=== PATIENT | female | born 1950 | race Caucasian/White ===

== ENCOUNTER 2018-11-18 18:13 | Inpatient (IN) | payer MEDICARE, SELFPAY ==
[2018-11-18 18:17] VITALS: BP 120/72; PULSE 66; RESP 10; TEMP 36.6; O2SAT 95; BMI 27.4
--- NOTE | 2018-11-18 18:41 | ED_ITS ---
HPI - Abdominal Pain General Chief Complaint: Abdominal Pain Stated Complaint: Abd Pain Time Seen by Provider: 11/18/18 18:41 Source: patient Mode of arrival: EMS Limitations: no limitations History of Present Illness HPI narrative: Patient is a 68-year-old female. [place] by [place]. She states the abdominal pain started earlier today. Has had some nausea and vomiting which she states did not change any of her pain. No change in stool habits. No urinary symptoms. She did receive some pain medication prior to arrival which did improve her symptoms somewhat. No fevers. Related Data Home Medications Medication Instructions Recorded Confirmed omeprazole 20 mg PO DAILY 11/18/18 11/18/18 Allergies Allergy/AdvReac Type Severity Reaction Status Date / Time Penicillins Allergy Severe Anaphylaxis Verified 11/18/18 19:53 Review of Systems Constitutional Denies fever(s) Cardiovascular Denies chest pain and Denies dyspnea Respiratory Denies dyspnea Gastrointestinal Gastrointestinal: Reports abdominal pain, Denies change in stool character, Reports nausea and Reports vomiting Genitourinary Denies dysuria and Denies vaginal discharge Musculoskeletal Denies myalgias and Denies arthralgias Integumentary/Breasts Denies rash Neurologic Denies behavioral changes Psychiatric Denies behavioral changes Hematologic/Lymphatic Denies easy bleeding and Denies easy bruising [facility] Medical History Broken ankle (Acute) GERD (gastroesophageal reflux disease) (Acute) History of hysterectomy (Acute) Skin cancer (Acute) Surgical History Hx of cholecystectomy (Acute) Social History household members: spouse Smoking Status: Never smoker alcohol intake: never Social History household members: spouse Smoking Status: Never smoker alcohol intake: never Exam Initial Vital Signs Initial Vital Signs: Vital Signs Temperature 97.8 F 11/18/18 18:17 Pulse Rate 66 11/18/18 18:17 Respiratory Rate 10 L 11/18/18 18:17 Blood Pressure 120/72 11/18/18 18:17 Pulse Oximetry 95 11/18/18 18:17 Const General: cooperative, well developed, well groomed and No acute distress Orientation: alert, awake and oriented x3 HENMT Head: normal to inspection and normocephalic Resp Effort & Inspection: normal respiratory effort Auscultation: clear to auscultation bilaterally Cardio Rate: regular rate Rhythm: regular rhythm Pulses: radial pulses present GI Inspection: non-distended Palpation: soft, No firm and tender (Epigastrium right left upper quadrant) Back/Spine/Pelvis Back: No CVA tenderness Skin Lesions: no lesions Rashes: no rashes Neuro General: alert and awake Cognition: normal cognition Speech: speech normal Extrem General: normal to inspection and capillary refill normal Psych Appearance: grossly normal and well kempt Scores GCS Jaden coma scale eye opening: Spontaneous [place] coma scale verbal response: Orientated [place] coma scale motor response: Obey commands Jaden coma scale total score: 15 Course Orders Ordered: ED Orders 11/18/18 18:26 EKG-12 Lead Stat 11/18/18 18:45 Complete Blood Count AUTO DIFF Stat Comprehensive Metabolic Panel Stat Lipase Stat Partial Thromboplastin Time Stat Prothrombin Time INR Stat 11/18/18 18:50 CT abdomen pelvis w con Stat 11/18/18 20:34 Urine Culture Stat Urine Microscopic Stat 11/18/18 23:09 Consult to Discharge Planning Routine 11/19/18 Basic Metabolic Panel Routine Complete Blood Count AUTO DIFF Routine Lipase Routine Lipid Panel Routine Enoxaparin Sodium (Lovenox) 40 mg SUBCUT DAILY [facility] Hydromorphone HCl (Dilaudid) 0.5 mg IV Q6H PRN PRN Reason: Pain, Moderate (4-6) Hydromorphone HCl (Dilaudid) 1 mg IV Q6HR PRN PRN Reason: Pain, Severe (7-10) Sodium Chloride (Normal Saline 0.9%) 1,000 mls @ 150 mls/hr IV CONT [facility] Naloxone HCl (Narcan) 0.2 mg IV Q2MIN PRN PRN Reason: Opiate Reversal Ondansetron HCl (Zofran) 4 mg IV Q8HR PRN PRN Reason: Nausea And Vomiting Discontinued Medications Sodium Chloride (Normal Saline 0.9%) 1,000 mls @ 125 mls/hr IV CONT [facility] Last Infusion: 11/18/18 22:10 Dose: 125 mls/hr Admin: 11/18/18 20:48 Dose: 125 mls/hr Morphine Sulfate (Morphine) 4 mg IV NOW ONE Stop: 11/18/18 22:00 Last Admin: 11/18/18 22:03 Dose: 4 mg Vital Signs - 8 hr 11/18/18 18:17 11/18/18 19:00 11/18/18 20:54 Temperature 97.8 F Pulse Rate 66 71 Respiratory Rate 10 L 13 Blood Pressure 120/72 Blood Pressure [Left Arm] 123/56 L 128/76 Pulse Oximetry 95 95 97 11/18/18 22:18 11/18/18 22:42 Temperature 97.8 F Pulse Rate 71 67 Respiratory Rate 16 20 Blood Pressure 131/68 128/68 Blood Pressure [Left Arm] Pulse Oximetry 96 97 MDM - Abdominal Pain Lab Data Attestation: I reviewed the patient's lab results. Result diagrams: 11/18/18 18:45 11/18/18 18:45 Lab Results 11/18/18 11/18/18 11/18/18 Range/Units 18:45 18:45 18:45 WBC 8.3 (4.5-11.0) X10^3/uL RBC 4.54 (4.0-5.2) X10^6/uL Hgb 14.1 (12.0-16.0) g/dL Hct 40.5 (36-46) % MCV 89.2 (80-100) fL MCH 31.1 (26-34) PG MCHC 34.9 (30-36) % RDW 13.3 (11.6-14.8) % Plt Count 178 (150-400) X10^3/uL Neut % (Auto) 87.8 H (50-75) % Lymph % (Auto) 6.9 L (25-40) % [place] % (Auto) 4.6 (3-14) % Eos % (Auto) 0.4 L (2-4) % Baso % (Auto) 0.3 (0-2) % Neut # (Auto) 7300 H (1084-0135) /uL Lymph # (Auto) 600 L (2954-4278) /uL [place] # (Auto) 400 (0-900) /uL Eos # (Auto) 0 (0-450) /uL Baso # (Auto) 0 (0-100) /uL PT 11.8 (10.1-12.7) SECONDS INR 1.0 (0.9-1.3) APTT 25 L (26.4-36.2) SECONDS Sodium 142 (137-145) mmol/L Potassium 4.0 (3.4-5.1) mmol/L Chloride 108 H (98-107) mmol/L Carbon Dioxide 28 (22-32) mmol/L BUN 14 (7-17) mg/dL Creatinine 0.60 (0.52-1.04) mg/dL Estimated GFR > 60.0 (>60) mL/min BUN/Creatinine Ratio 23.3 H (6-22) Glucose 139 H (80-110) mg/dL Calcium 8.5 (8.4-10.2) mg/dL Total Bilirubin 1.2 (0.2-1.3) mg/dL AST 137 H (14-36) IU/L ALT 93 H (9-52) IU/L Alkaline Phosphatase 85 (38-126) U/L Total Protein 6.0 L (6.3-8.2) g/dL Albumin 3.6 (3.5-5.0) g/dL Globulin 2.4 (1.7-4.1) g/dL Albumin/Globulin Ratio 1.5 (1.0-2.8) Lipase 66572 H (23-300) U/L Urine RBC (0-5/HPF) Urine WBC (0-5/HPF) Ur Squamous Epith Cells (0-5/HPF) Urine Bacteria (None) Ur Culture Indicated? 11/18/18 Range/Units 20:34 WBC (4.5-11.0) X10^3/uL RBC (4.0-5.2) X10^6/uL Hgb (12.0-16.0) g/dL Hct (36-46) % MCV (80-100) fL MCH (26-34) PG MCHC (30-36) % RDW (11.6-14.8) % Plt Count (150-400) X10^3/uL Neut % (Auto) (50-75) % Lymph % (Auto) (25-40) % [place] % (Auto) (3-14) % Eos % (Auto) (2-4) % Baso % (Auto) (0-2) % Neut # (Auto) (5730-9483) /uL Lymph # (Auto) (0833-7397) /uL [place] # (Auto) (0-900) /uL Eos # (Auto) (0-450) /uL Baso # (Auto) (0-100) /uL PT (10.1-12.7) SECONDS INR (0.9-1.3) APTT (26.4-36.2) SECONDS Sodium (137-145) mmol/L Potassium (3.4-5.1) mmol/L Chloride (98-107) mmol/L Carbon Dioxide (22-32) mmol/L BUN (7-17) mg/dL Creatinine (0.52-1.04) mg/dL Estimated GFR (>60) mL/min BUN/Creatinine Ratio (6-22) Glucose (80-110) mg/dL Calcium (8.4-10.2) mg/dL Total Bilirubin (0.2-1.3) mg/dL AST (14-36) IU/L ALT (9-52) IU/L Alkaline Phosphatase (38-126) U/L Total Protein (6.3-8.2) g/dL Albumin (3.5-5.0) g/dL Globulin (1.7-4.1) g/dL Albumin/Globulin Ratio (1.0-2.8) Lipase (23-300) U/L Urine RBC 1-5/hpf (0-5/HPF) Urine WBC 5-10/hpf H (0-5/HPF) Ur Squamous Epith Cells 0-1 /hpf (0-5/HPF) Urine Bacteria None seen (None) Ur Culture Indicated? Specimen cultured Point of care testing: Urine Dip Bedside Urine Glucose Negative Bedside Urine Bilirubin - Negative Bedside Urine Ketone - Negative Urine Specific [place] 1.015 Bedside Urine Occult Blood - Negative Bedside Urine pH 7.0 Bedside Urine Protein - Negative Bedside Urine Urobilinogen 2+ 4mg Bedside Urine Nitrite - Negative Bedside Urine Leukocytes ++ [address] scan - abdomen: Radiologist's impression: [address] [address] [address] Scan Report Signed Patient: Apryl Sierra#: [id number] : 1950Acct:[id number] Age/Sex: 68 / FDate of Service: 11/18/18 Loc: ED Accession Number: [id number] Procedure: CT abdomen pelvis w con Ordering Provider: Lanker,Ck D.O. PROCEDURE: CT ABDOMEN PELVIS W CON INDICATIONS: Generalized abdominal pain TECHNIQUE: After the administration of intravenous contrast, 5 mm thick sections acquired from the diaphragm to the symphysis. 5 mm coronal and sagittal reformats were acquired. For radiation dose reduction, the following was used: automated exposure control, adjustment of mA and/or kV according to patient size. COMPARISON: None. FINDINGS: Image quality: Excellent. ABDOMEN: Lung bases: Mild atelectatic changes at both lung bases.. Heart size is normal. Mild thickening and wall edema of the distal esophagus. No hiatal hernia. Solid organs: Liver is normal in size and enhancement. Moderate diffuse hypodensity of hepatic parenchyma. Gallbladder is surgically absent. The extrahepatic common duct is moderately dilated. No significant intrahepatic bladder dilatation. The pancreas is mildly enlarged and there is a small moderate amount of peripancreatic fluid and fat stranding. No focal fluid collections. The splenic vein remains widely patent. No pancreatic ductal dilatation. The entire gland enhances. The spleen is at the upper limits of normal in size measuring 12.6 cm. No adrenal nodules. Kidneys demonstrate normal size and enhancement, without hydronephrosis. Peritoneum and bowel: Bowel loops demonstrate normal wall thickness and caliber. No free fluid or air. Normal appendix. Nodes and vessels: No retroperitoneal or mesenteric adenopathy by size criteria. Aorta and inferior vena cava are normal in size. Miscellaneous: No ventral hernias. PELVIS: Genitourinary: Bladder wall thickness is normal. The uterus is surgically absent. Ovarian tissue is not identified. Miscellaneous: Very small fat containing right inguinal hernia.. Bones: No suspicious bony lesions. Degenerative disc height loss L5-S1. No vertebral body compression fractures. IMPRESSION: 1. Findings of mild to moderate acute pancreatitis without complication. Extra hepatic biliary dilatation is likely secondary to pancreatic head edema. 2. Post cholecystectomy and hysterectomy. 3. Mild splenomegaly. Splenic vein are patent. 4. Moderate hepatic steatosis. 5. Distal esophageal edema and thickening, potentially secondary to esophagitis or vomiting. Dictated by: Mary Sanderson M.D. on 11/18/2018 at 20:51 Approved by: Mary Sanderson M.D. on 11/18/2018 at 20:58 ECG Data Attestation: I personally reviewed and interpreted this ECG as follows: Prior ECG tracings: not available for review Interpretation: Sinus rhythm Normal axis Ventricular rate is 68 Normal QRS Normal QTC Nonspecific ST T wave changes MDM Narrative Medical decision making narrative: Patient with an elevated lipase and elevated LFTs. She has had her gallbladder out in the past. She is tender to palpation over left upper quadrant. CT scan concerning for pancreatitis. Labs support this. Physical exam also supports this. No other intra-abdominal pathology noted on the CT scan. Discussed the case with SUNSHINE Saldana the night hospitalist will admit for further evaluation treatment. Discussed the admission with the patient and her was at bedside. They both expressed understanding and agreement with plan. Discharge Plan Departure Patient Disposition: Admitted As Inpatient Clinical Impression: Pancreatitis Qualifiers: Chronicity: acute Pancreatitis type: unspecified pancreatitis type Acute pancreatitis complication: unspecified Qualified Code(s): K85.90 - Acute pancreatitis without necrosis or infection, unspecified Discharge Date/Time: 11/18/18 22:20 Interventions: ED Discharge Assessment Last Done: 11/18/18 22:18 Admit Date/Time: 11/18/18 22:14 Admit Provider: Roberto Saldana
[2018-11-18 18:50] LABS: Add Manual Diff / Slide Review NO; Basophils Absolute Auto 0 /uL (0-100); Basophils Percent Auto 0.3 % (0-2); Eosinophils Absolute Auto 0 /uL (0-450); Eosinophils Percent Auto 0.4 % (2-4); Hematocrit 40.5 % (36-46); Hemoglobin 14.1 g/dL (12.0-16.0); Lymphocytes Absolute Auto 600 /uL (1100-4500); Lymphocytes Percent Auto 6.9 % (25-40); Mean Corpuscular HGB Conc 34.9 % (30-36); Mean Corpuscular Hemoglobin 31.1 PG (26-34); Mean Corpuscular Volume 89.2 fL (80-100); Monocytes Absolute Auto 400 /uL (0-900); Monocytes Percent Auto 4.6 % (3-14); Neutrophils Absolute Auto 7300 /uL (1500-7000); Neutrophils Percent Auto 87.8 % (50-75); Platelet Count 178 X10^3/uL (150-400); Red Blood Cell Count 4.54 X10^6/uL (4.0-5.2); Red Cell Distribution Width 13.3 % (11.6-14.8); White Blood Cell Count 8.3 X10^3/uL (4.5-11.0)
--- NOTE | 2018-11-18 18:50 | DI.CT.S_ITS ---
PROCEDURE: CT ABDOMEN PELVIS W CON INDICATIONS: Generalized abdominal pain TECHNIQUE: After the administration of intravenous contrast, 5 mm thick sections acquired from the diaphragm to the symphysis. 5 mm coronal and sagittal reformats were acquired. For radiation dose reduction, the following was used: automated exposure control, adjustment of mA and/or kV according to patient size. COMPARISON: None. FINDINGS: Image quality: Excellent. ABDOMEN: Lung bases: Mild atelectatic changes at both lung bases.. Heart size is normal. Mild thickening and wall edema of the distal esophagus. No hiatal hernia. Solid organs: Liver is normal in size and enhancement. Moderate diffuse hypodensity of hepatic parenchyma. Gallbladder is surgically absent. The extrahepatic common duct is moderately dilated. No significant intrahepatic bladder dilatation. The pancreas is mildly enlarged and there is a small moderate amount of peripancreatic fluid and fat stranding. No focal fluid collections. The splenic vein remains widely patent. No pancreatic ductal dilatation. The entire gland enhances. The spleen is at the upper limits of normal in size measuring 12.6 cm. No adrenal nodules. Kidneys demonstrate normal size and enhancement, without hydronephrosis. Peritoneum and bowel: Bowel loops demonstrate normal wall thickness and caliber. No free fluid or air. Normal appendix. Nodes and vessels: No retroperitoneal or mesenteric adenopathy by size criteria. Aorta and inferior vena cava are normal in size. Miscellaneous: No ventral hernias. PELVIS: Genitourinary: Bladder wall thickness is normal. The uterus is surgically absent. Ovarian tissue is not identified. Miscellaneous: Very small fat containing right inguinal hernia.. Bones: No suspicious bony lesions. Degenerative disc height loss L5-S1. No vertebral body compression fractures. IMPRESSION: 1. Findings of mild to moderate acute pancreatitis without complication. Extra hepatic biliary dilatation is likely secondary to pancreatic head edema. 2. Post cholecystectomy and hysterectomy. 3. Mild splenomegaly. Splenic vein are patent. 4. Moderate hepatic steatosis. 5. Distal esophageal edema and thickening, potentially secondary to esophagitis or vomiting. Dictated by: Mary Sanderson M.D. on 11/18/2018 at 20:51 Approved by: Mary Sanderson M.D. on 11/18/2018 at 20:58
[2018-11-18 18:58] LABS: Prothrombin Time 11.8 SECONDS (10.1-12.7)
[2018-11-18 19:00] VITALS: BP 123/56; O2SAT 95
[2018-11-18 19:00] LABS: PTT Partial Thromboplastin Tim 25 SECONDS (26.4-36.2)
[2018-11-18 19:02] LABS: Alanine Aminotransferase 93 IU/L (9-52); Albumin 3.6 g/dL (3.5-5.0); Albumin Globulin Ratio 1.5 (1.0-2.8); Alkaline Phosphatase 85 U/L (38-126); Aspartate Aminotransferase 137 IU/L (14-36); BUN Creatinine Ratio 23.3 (6-22); Bilirubin Total 1.2 mg/dL (0.2-1.3); Blood Urea Nitrogen 14 mg/dL (7-17); Calcium 8.5 mg/dL (8.4-10.2); Carbon Dioxide 28 mmol/L (22-32); Chloride 108 mmol/L (98-107); Estimated Glomerular Filt Rate > 60.0 mL/min (>60); Globulin 2.4 g/dL (1.7-4.1); Glucose 139 mg/dL (80-110); HEMOLYSIS < 15 (0-50); Sodium 142 mmol/L (137-145)
[2018-11-18 20:14] LABS: Lipase 29973 U/L (23-300)
[2018-11-18 20:44] LABS: Bacteria Urine None Seen; Culture Indicated Urine Specimen Cultured; RBC Urine 1-5/HPF (0-5/HPF); Squamous Epithelial Cell Urine 0-1 /HPF (0-5/HPF); WBC Urine 5-10/HPF (0-5/HPF)
[2018-11-18] MEDS: SODIUM CHLORIDE 0.9% 1,000 ML 125 ML IV (20:48)
[2018-11-18 20:54] VITALS: BP 128/76; PULSE 71; RESP 13; O2SAT 97
[2018-11-18] MEDS: MORPHINE 4 MG/ML INJ IV (22:03)
[2018-11-18 22:18] VITALS: BP 131/68; PULSE 71; RESP 16; O2SAT 96
[2018-11-18 22:30] VITALS: BMI 29.1
[2018-11-18 22:42] VITALS: BP 128/68; PULSE 67; RESP 20; TEMP 36.6; O2SAT 97
--- NOTE | 2018-11-18 22:59 | PC.ADMIT ---
Admission Note: Pt to acute care from ER transferred via stretcher. A/O. Reports pain in abdomen decreased to 4/10. IV to left AC infusing w/o complications. Spouse present at bedside for admission and will stay the night. Oriented to room/call light. Pt has bruising noted to left thigh, reports recent fall. Pt and spouse concerned because some of the belongings sent with pt from [place] are not present once she reached [facility]. Shirt, bra and purse missing. The patient,Apryl Sierra,68 y/o, was given written information regarding hospital policies, unit procedures and contact persons. [id number] Patient's smoking status: Never smoker. Vital Signs - 8 hr 11/18/18 18:17 11/18/18 19:00 11/18/18 20:54 Temperature 97.8 F Pulse Rate 66 71 Respiratory Rate 10 L 13 Blood Pressure 120/72 Blood Pressure [Left Arm] 123/56 L 128/76 Pulse Oximetry 95 95 97 11/18/18 22:18 11/18/18 22:42 Temperature 97.8 F Pulse Rate 71 67 Respiratory Rate 16 20 Blood Pressure 131/68 128/68 Blood Pressure [Left Arm] Pulse Oximetry 96 97
[2018-11-19] VITALS (9 sets, daily range): BP systolic 121–159; BP diastolic 65–77; PULSE 62–70; RESP 15–24; TEMP 36.3–37.3; O2SAT 94–98
[2018-11-19] MEDS: SODIUM CHLORIDE 0.9% 1,000 ML 150 ML IV ×4 (00:31→20:40)
--- NOTE | 2018-11-19 02:14 | P.HP_ITS ---
History of Present Illness Date Patient Seen: 11/18/18 Time Patient Seen: 23:15 Chief complaint: Abd Pain Narrative: Ms Apryl Sierra is a 68-year-old female patient with a history significant only for skin cancer and gastroesophageal reflux presents today for acute onset of abdominal pain. The patient and has not traveled from [place] to [place] 1 week ago during which time she was fine without complaints of pain or problems. Today she developed generalized abdominal pain with associated nausea and vomiting. The patient was seen in a clinic on [place] where she received Dilaudid for pain and was subsequently transferred to [facility] for continuing care. The patient states she has not had symptoms such as this before and had no prodromal complaints of illness. She denies fevers or chills and has no headaches or dizziness. Denies chest pain or palpitations, shortness of breath cough or wheezing. She has had nausea and vomiting that developed after the onset of abdominal pain and denies change in frequency or character of bowel movements. She denies complaints of dysuria or hematuria. She Has no complaints of muscle or joint pains and is independent in her ADLs and uses no assistive devices. Upon arrival in the ER the patient is afebrile with a temperature of 98.7? has a blood pressure of 120/72, heart rate of 66 respirations of 12 and saturation on room air of 95%. The patient underwent CT exam of the abdomen which found thickening of the distal esophagus and moderate extrahepatic ductal dilation without evidence of obstruction and is thought to be related to inflammation at the head of the pancreas. The pancreas is mildly enlarged and peripancreatic fluid is noted without focal fluid collections. Hepatic steatosis is also noted. Lab work finds a white count of 9.3 with a hemoglobin of 14.1 and hematocrit of 40.5 and platelets 178. Chemistries are within normal limits with a nonfasting glucose of 139. Lipase is found to be markedly elevated at 29 1973, AST mildly elevated at 137 and ALT at 93 with a normal alkaline phosphatase at 85. Coags are within normal limits. WBCs are identified in the urine which is sent for culture. The patient is admitted to the hospital for acute pancreatitis. Patient History Medical History (Updated 11/19/18 @ 02:23 by JAVY Roper) GERD (gastroesophageal reflux disease) (Acute) Skin cancer (Acute) Surgical History (Updated 11/19/18 @ 02:37 by JAVY Roper) Broken ankle (Acute) History of breast lump/mass excision (Acute) History of hysterectomy (Acute) Hx of cholecystectomy (Acute) Status post trigger finger release (Acute) Social History household members: spouse Smoking Status: Never smoker alcohol intake: never Family & Social History Social History: household members spouse Prior Living Arrangements House Safety & Behavioral: Feels Safe in Current Yes Environment Been Physically Hurt or No Threatened By a Person Suicidal Ideation Description None Tobacco & Substance use: Smoking Status Never smoker alcohol intake never alcohol intake frequency holiday/special occasion Substance Use Type does not use Comment: The patient is in [facility] visiting from [place] where she lives with her in a single family home. They have been for 49 years. Smoking: Patient denies ever smoking. Alcohol: Patient states she does not consume alcohol. Substance use: Patient denies recreation pharmaceuticals use of herbal or cannabis products. Advanced directives: In direct discussion with the patient she states her wish to be FULL CODE. She designates her Jax to be her surrogate decision maker. Meds Home Medications Medication Instructions Recorded Confirmed Type omeprazole 20 mg PO DAILY 11/18/18 11/18/18 History Allergies Allergy/AdvReac Type Severity Reaction Status Date / Time Penicillins Allergy Severe Anaphylaxis Verified 11/18/18 19:53 Review of Systems Review of Systems All systems reviewed & are unremarkable except as noted in HPI and below Exam Vital Signs (past 8 hours): - 11/18/18 18:17 11/18/18 19:00 11/18/18 20:54 Temperature 97.8 F Pulse Rate 66 71 Respiratory Rate 10 L 13 Blood Pressure 120/72 Blood Pressure [Left Arm] 123/56 L 128/76 Pulse Oximetry 95 95 97 11/18/18 22:18 11/18/18 22:42 11/19/18 00:30 Temperature 97.8 F 98.3 F Pulse Rate 71 67 70 Respiratory Rate 16 20 16 Blood Pressure 131/68 128/68 130/74 Blood Pressure [Left Arm] Pulse Oximetry 96 97 98 Oxygen Delivery Method Room Air Oxygen Flow Rate 0 Narrative Exam Narrative: GENERAL APPEARANCE: well developed, well nourished, uncomfortable appearing HEAD: Normocephalic, atraumatic, no scalp lesions. EYES: pupils equal, round, reactive to light and accommodation, sclera non- icteric, extraocular movement intact without nystagmus. EARS: normal external structures, no ear pain NOSE: sinuses non tender to percussion, no rhinorrhea ORAL CAVITY: mucosa moist without lesions or exudate, palate normal, tongue in midline. THROAT: normal, no erythema, no exudate, pharynx normal, uvula midline. NECK/THYROID: neck supple, no jugular venous distention, no carotid bruit, no thyromegaly, trachea midline. LYMPH NODES: no cervical or supraclavicular lymphadenopathy. SKIN: warm and dry, no suspicious lesions, no rashes, good turgor. HEART: regular rate and rhythm, S1-S2 without murmur appreciated, no rubs or gallops, brisk capillary refill, 2+ dorsalis pedis pulses, no edema LUNGS: clear to auscultation bilaterally, no coarseness crackles or wheezing, no cough present CHEST: Symmetrical movement, no accessory muscle use, no pain to AP and lateral compression. ABDOMEN: Pain on palpation in all quadrants, soft, no fluid wave, no distention, no guarding or peritoneal signs, no organomegaly, no flank or suprapubic tenderness, active bowel tones. BACK: Normal curvature, nontender to palpation, no CVA tenderness on percussion EXTREMITIES: moves all extremities, strength is 5/5 and symmetrical, no deformities or joint effusions, no abdominal pain on straight leg raise. NEUROLOGIC: AAO x4, no focal neurologic deficits, cranial nerves II-XII grossly intact , motor strength normal upper and lower extremities, sensory exam intact to light touch, hearing grossly normal to speech. PSYCH: alert, cognitive function intact, good eye contact, quiet and soft spoken with stable behavior Objective Labs Result Diagrams: 11/18/18 18:45 11/18/18 18:45 Labs: Laboratory Results - last 24 hr 11/18/18 11/18/18 11/18/18 18:45 18:45 18:45 WBC 8.3 RBC 4.54 Hgb 14.1 Hct 40.5 MCV 89.2 MCH 31.1 MCHC 34.9 RDW 13.3 Plt Count 178 Neut % (Auto) 87.8 H Lymph % (Auto) 6.9 L Ritchie % (Auto) 4.6 Eos % (Auto) 0.4 L Baso % (Auto) 0.3 Neut # (Auto) 7300 H Lymph # (Auto) 600 L Ritchie # (Auto) 400 Eos # (Auto) 0 Baso # (Auto) 0 PT 11.8 INR 1.0 APTT 25 L Sodium 142 Potassium 4.0 Chloride 108 H Carbon Dioxide 28 BUN 14 Creatinine 0.60 Estimated GFR > 60.0 BUN/Creatinine Ratio 23.3 H Glucose 139 H Calcium 8.5 Total Bilirubin 1.2 AST 137 H ALT 93 H Alkaline Phosphatase 85 Total Protein 6.0 L Albumin 3.6 Globulin 2.4 Albumin/Globulin Ratio 1.5 Lipase 46197 H Urine RBC Urine WBC Ur Squamous Epith Cells Urine Bacteria Ur Culture Indicated? 11/18/18 20:34 WBC RBC Hgb Hct MCV MCH MCHC RDW Plt Count Neut % (Auto) Lymph % (Auto) Ritchie % (Auto) Eos % (Auto) Baso % (Auto) Neut # (Auto) Lymph # (Auto) Ritchie # (Auto) Eos # (Auto) Baso # (Auto) PT INR APTT Sodium Potassium Chloride Carbon Dioxide BUN Creatinine Estimated GFR BUN/Creatinine Ratio Glucose Calcium Total Bilirubin AST ALT Alkaline Phosphatase Total Protein Albumin Globulin Albumin/Globulin Ratio Lipase Urine RBC 1-5/hpf Urine WBC 5-10/hpf H Ur Squamous Epith Cells 0-1 /hpf Urine Bacteria None seen Ur Culture Indicated? Specimen cultured Assessment & Plan Assessment & Plan narrative: This is a 68-year-old female patient presents to the hospital with acute onset of abdominal pain today with associated nausea vomiting. The patient is admitted for acute pancreatitis. 1. Acute pancreatitis, present on admission. -patient with onset of symptoms today with associated nausea vomiting, no history of alcohol consumption. -CT scan with findings consistent with mildly enlarged pancreas with valery pancreatic fluid without focal collections. Radiology interpretation finds moderate ductal dilatation without obstruction believed to be due to inflammation of the head of the pancreas. -patient has lipase of 29,[address] of 137 and ALT of 93 and normal alkaline phosphatase at 85. She has a normal white cell count at 9.3. -the patient has diffuse abdominal pain, patient be given Dilaudid 0.5 mg to 1 mg every 6 hours as needed for pain. -nauseous treated with Zofran 4 mg every 8 hours as needed. -patient is NPO -normal saline at 150 cc/hour. -will obtain a lipid panel. 2. Chronic Gastroesophageal reflux disorder, active. -patient complaints of nausea vomiting and epigastric discomfort on palpation. -CT scan notes thickening of the distal esophagus. -patient has been taking omeprazole 20 mg daily at home. -patient is NPO. -pantoprazole 20 mg twice daily. The patient is admitted to the hospital due to the severity of her symptoms, risk for complications and adverse events. The patient is admitted as an inpatient with expected length of stay to be greater than 2 midnights. Time Spent With Patient Time with patient: 15-24 minutes Scores GCS Jaden coma scale eye opening: Spontaneous [place] coma scale verbal response: Orientated [place] coma scale motor response: Obey commands Jaden coma scale total score: 15
[2018-11-19 05:43] LABS: Add Manual Diff / Slide Review NO; Basophils Absolute Auto 0 /uL (0-100); Basophils Percent Auto 0.6 % (0-2); Eosinophils Absolute Auto 0 /uL (0-450); Eosinophils Percent Auto 0.2 % (2-4); Hematocrit 38.9 % (36-46); Hemoglobin 13.6 g/dL (12.0-16.0); Lymphocytes Absolute Auto 700 /uL (1100-4500); Lymphocytes Percent Auto 9.9 % (25-40); Mean Corpuscular Hemoglobin 31.1 PG (26-34); Mean Corpuscular Volume 88.9 fL (80-100); Monocytes Absolute Auto 300 /uL (0-900); Monocytes Percent Auto 4.6 % (3-14); Neutrophils Absolute Auto 5700 /uL (1500-7000); Neutrophils Percent Auto 84.7 % (50-75); Platelet Count 178 X10^3/uL (150-400); Red Blood Cell Count 4.38 X10^6/uL (4.0-5.2); White Blood Cell Count 6.8 X10^3/uL (4.5-11.0)
[2018-11-19 05:51] LABS: Blood Urea Nitrogen 12 mg/dL (7-17); Calcium 8.1 mg/dL (8.4-10.2); Carbon Dioxide 24 mmol/L (22-32); Chloride 110 mmol/L (98-107); Estimated Glomerular Filt Rate > 60.0 mL/min (>60); Glucose 111 mg/dL (80-110); HEMOLYSIS < 15 (0-50); Potassium 3.9 mmol/L (3.4-5.1); Sodium 138 mmol/L (137-145)
[2018-11-19 05:53] LABS: Cholesterol 142 mg/dL (140-199); HDL Cholesterol 40 mg/dL (40-60); LDL Cholesterol Calculated 88 mg/dL (<100); Triglycerides 70 mg/dL (35-150)
[2018-11-19 06:23] LABS: Lipase 6734 U/L (23-300)
--- NOTE | 2018-11-19 09:00 | CM.DANOTE ---
DCP: Case received, EMR reviewed and met with patient. Introduced self and role. Baseline health information obtained from patient. DCP template assessment completed with information currently available. Patient is a 68 year old female who admitted yesterday evening to the care of the hospitalist team. PCP: Dr. Jaeger, in [place]. Payer: confirmed: Medicare. Patient came to the hospital via ambulance from the [facility], secondary to abdominal pain. Patient holds diagnosis of acute pancreatitis. Patient and her , Jax, have a summer home there, but live in [place]. She is independent. She was lying in bed when conversing complaining of a headache. P: DCP to continue to follow and be available for any resources that patient may need before discharge. Jaqueline Marley RN/[employer]
[2018-11-19] MEDS: ENOXAPARIN 40 MG/0.4 ML SYRINGE SUBCUT (09:02)
[2018-11-19] MEDS: PANTOPRAZOLE 40 MG VIAL 20 MG IV ×2 (09:02→21:37)
[2018-11-19] MEDS: HYDROMORPHONE 0.5 MG INJ IV ×3 (09:05→21:37)
--- NOTE | 2018-11-19 10:37 | PC.NURSE ---
Addendum entered by Tamia Engel R.N. 11/19/18 14:39: MR - alana completed, ivf saline locked for transport via for MRI. Addendum entered by Tamia Engel R.N. 11/19/18 13:09: MS/GI/ - resting bed, standby assist, up to dangle position, ambul to br and voided 150ml conc urine, declines chair, feels tired, ret to bed, states no change in abd discomfort or nausea and declines medication at this time. Addendum entered by Tamia Engel R.N. 11/19/18 10:46: PAIN - earlier iv dilaudid resolved bradford and abd discomfort, visiting w/spouse at bedside. Original Note: AM NOTE - easily awakens, states some abd tenderness, much improved since admission, some headache discomfort now, denies nausea, bt are hypo, no flatus, hr 78, ra 94%, given 0.5mg iv dilaudid for discomfort.
--- NOTE | 2018-11-19 13:42 | DI.MRI.S_ITS ---
PROCEDURE: MR ABDOMEN WO CON INDICATIONS: r/o stones TECHNIQUE: Coronal HASTE through the abdomen, axial 2-D FLASH in- and [id number], and breath-hold T2 FSE with fat saturation through the biliary system and pancreas. Oblique coronal and axial thin-slice HASTE, radial thick-slab HASTE centered on the extrahepatic bile ducts. Intravenous secretin: Not requested. COMPARISON: [facility], CT, CT ABDOMEN PELVIS W CON, 11/18/2018, 19:50. FINDINGS: Image quality: Diagnostic. Liver: No the liver is normal in size and demonstrates moderate signal dropout on opposed phased images, compared to the in phase images, suggesting hepatic steatosis. No focal liver lesions are identified. No significant intrahepatic biliary dilatation is identified. The common bile duct is enlarged and measures up to approximately 10 mm in diameter within the region of the anthony hepatis. No intraluminal filling defects are evident within it the common bile duct. Smooth tapering of the distal aspect of the common bile duct is present. The cystic stump is unremarkable. Patient has had a prior cholecystectomy. Expected flow-voids are identified within the portal and hepatic veins. Pancreas: There is moderate edema identified surrounding the pancreas. No loculated fluid collections or cysts are evident. There is a small amount of ascites identified within the upper abdomen. Other solid organs: Mild enlargement of the spleen is present, measuring 12.2 cm in craniocaudal dimension. No focal splenic lesions are evident. The adrenals are unremarkable. The kidneys are normal in size. No hydronephrosis is evident. Nodes and vessels: No retroperitoneal or mesenteric adenopathy by size criteria. Aorta and inferior vena cava are normal in size. Bowel and peritoneum: Prominence of the distal esophagus is present. The imaged bowel loops are nondilated. Moderate residual stool is seen within the colon. No loculated fluid collections are evident within the abdomen. No large areas of free air are identified. Scarring or Lung bases: Trace bilateral pleural effusions are evident. There may be areas of consolidation/atelectasis within the posterior right lower lobe. Heart size is normal. Bones and soft tissues: No ventral hernias. Bone marrow is of normal overall signal. IMPRESSION: 1. Dilated common bile duct may be within normal limits given the patient's prior cholecystectomy. There is no evidence of choledocholithiasis. 2. Acute pancreatitis. No loculated fluid collections or pseudocysts. 3. Mild upper abdominal ascites. 4. Trace bilateral effusions. 5. Distal esophageal wall thickening may be related to esophagitis. Please correlate clinically. Dictated by: Esteban Hodges M.D. on 11/19/2018 at 14:27 Approved by: Esteban Hodges M.D. on 11/19/2018 at 14:35
--- NOTE | 2018-11-19 13:48 | P.PN_ITS ---
Subjective Date Patient Seen: 11/19/18 Interval history: The patient is a 68-year-old female who was admitted to the hospital for acute pancreatitis. The patient is status post cholecystectomy 0000 which occurred about 15 years ago. She does not have a significant history of alcohol use. She reports still feeling poorly although no nausea per se. She complains of a headache. She denies any shortness of breath. She has no vomiting. Exam Vital Signs (past 8 hours): - 11/19/18 08:10 11/19/18 09:20 11/19/18 12:40 Temperature 97.8 F 97.9 F Pulse Rate 68 62 Respiratory Rate 16 16 Blood Pressure 123/71 133/77 Pulse Oximetry 97 94 96 Oxygen Delivery Method Room Air Oxygen Flow Rate 0 Narrative Exam Narrative: Pleasant female lying in bed who appears to be somewhat uncommon Lungs: Clear to auscultation Cardiac exam: Regular rate and rhythm normal S1-S2 with a 2/6 systolic ejection Abdomen: Soft mildly tender in the midepigastric and lower quadrant of the abdomen there is no palpable mass. No rebound tender no board-like rigidity, bowel tones are hypoactive Extremities: SCDs in no evidence of edema Skin: No lesion Psychiatric: No confusion or hallucination Objective Labs Result Diagrams: 11/19/18 05:24 11/19/18 05:24 Labs: Laboratory Results - last 24 hr 11/18/18 11/18/18 11/18/18 18:45 18:45 18:45 WBC 8.3 RBC 4.54 Hgb 14.1 Hct 40.5 MCV 89.2 MCH 31.1 MCHC 34.9 RDW 13.3 Plt Count 178 Neut % (Auto) 87.8 H Lymph % (Auto) 6.9 L [place] % (Auto) 4.6 Eos % (Auto) 0.4 L Baso % (Auto) 0.3 Neut # (Auto) 7300 H Lymph # (Auto) 600 L [place] # (Auto) 400 Eos # (Auto) 0 Baso # (Auto) 0 PT 11.8 INR 1.0 APTT 25 L Sodium 142 Potassium 4.0 Chloride 108 H Carbon Dioxide 28 BUN 14 Creatinine 0.60 Estimated GFR > 60.0 BUN/Creatinine Ratio 23.3 H Glucose 139 H Calcium 8.5 Total Bilirubin 1.2 AST 137 H ALT 93 H Alkaline Phosphatase 85 Total Protein 6.0 L Albumin 3.6 Globulin 2.4 Albumin/Globulin Ratio 1.5 Triglycerides Cholesterol LDL Cholesterol, Calc HDL Cholesterol Lipase 31283 H Urine RBC Urine WBC Ur Squamous Epith Cells Urine Bacteria Ur Culture Indicated? 11/18/18 11/19/18 11/19/18 20:34 05:24 05:24 WBC 6.8 RBC 4.38 Hgb 13.6 Hct 38.9 MCV 88.9 MCH 31.1 MCHC 35.0 RDW 13.0 Plt Count 178 Neut % (Auto) 84.7 H Lymph % (Auto) 9.9 L [place] % (Auto) 4.6 Eos % (Auto) 0.2 L Baso % (Auto) 0.6 Neut # (Auto) 5700 Lymph # (Auto) 700 L [place] # (Auto) 300 Eos # (Auto) 0 Baso # (Auto) 0 PT INR APTT Sodium Potassium Chloride Carbon Dioxide BUN Creatinine Estimated GFR BUN/Creatinine Ratio Glucose Calcium Total Bilirubin AST ALT Alkaline Phosphatase Total Protein Albumin Globulin Albumin/Globulin Ratio Triglycerides 70 Cholesterol 142 LDL Cholesterol, Calc 88 HDL Cholesterol 40 Lipase 6734 H D Urine RBC 1-5/hpf Urine WBC 5-10/hpf H Ur Squamous Epith Cells 0-1 /hpf Urine Bacteria None seen Ur Culture Indicated? Specimen cultured 11/19/18 05:24 WBC RBC Hgb Hct MCV MCH MCHC RDW Plt Count Neut % (Auto) Lymph % (Auto) [place] % (Auto) Eos % (Auto) Baso % (Auto) Neut # (Auto) Lymph # (Auto) [place] # (Auto) Eos # (Auto) Baso # (Auto) PT INR APTT Sodium 138 Potassium 3.9 Chloride 110 H Carbon Dioxide 24 BUN 12 Creatinine 0.50 L Estimated GFR > 60.0 BUN/Creatinine Ratio 24.0 H Glucose 111 H Calcium 8.1 L Total Bilirubin AST ALT Alkaline Phosphatase Total Protein Albumin Globulin Albumin/Globulin Ratio Triglycerides Cholesterol LDL Cholesterol, Calc HDL Cholesterol Lipase Urine RBC Urine WBC Ur Squamous Epith Cells Urine Bacteria Ur Culture Indicated? Assessment & Plan Assessment & Plan narrative: 1. 68-year-old female admitted to the hospital with acute pancreatitis. Etiology of her pancreatitis is unclear. Will obtain an MRCP tomorrow to rule out pancreatic divisum or cystic duct stones. For now will continue IV hydration, antiemetics and pain medication. Patient will remain NPO 2. GERD will continue Protonix 3. Headache will continue pain medication as needed.
--- NOTE | 2018-11-19 17:24 | PC.NURSE ---
Addendum entered by Tyesha Okeefe R.N. 11/19/18 20:59: Pt reports headache never completely abates. Up with assistance to toilet to void dark avery urine. Reports stabbing abdominal pain upon return to bed that resolves without intervention. Blood sugar checked and pt @ 87. Discussed with JAVY Saldana to inquire if indicated to add dextrose to iv fluids. Pt medicated with iv dilaudid as per emar. Original Note: Pt c/o headache pain @ beginning of shift 4-09/22. Administered 0.5 mg dilaudid as per emar. Cool washcloth to forehead. Pt denies abdominal pain or nausea. States occasionally experiences nausea, but states this is short-lived and fleeting. Declined any intervention. Ice chips sparingly. Spouse is present @ bedside.
[2018-11-19] MEDS: DEXTROSE 5%-0.9% NS 1,000 ML 125 ML IV (21:36)
--- NOTE | 2018-11-20 00:23 | PC.NURSE ---
Addendum entered by Jessika Dickerson R.N. 11/20/18 05:56: Slept at intervals. States headache has resolved and abdominal pain is 3/10 but declines pain medication. Original Note: Patient is alert and oriented. Breath sounds with inspiratory crackles bilateral bases with RA sat of 96%. Discussed risk of pneumonia related to decreased activity and importance to CDB; incentive spirometer provided and instructed in use. Only able to get to 500 on I.S. HRR. Denies nausea. BT hypoactive; abdomen is tender throughout but most severe in epigastric area. Denies dysuria, frequency or urgency. Is able to turn self in bed and up with walker and 1 assist. Bruise noted on left lateral/anterior thigh from recent fall. Wearing bilateral SCD's. Spouse rooming in. States she has an advanced directive but they do not have copy with them and they are visiting from [place] so unable to provide copy. Fall risk score is high and bed alarm is activated.
[2018-11-20 04:00] VITALS: BP 121/51; PULSE 66; RESP 18; TEMP 36.9; O2SAT 96
[2018-11-20] MEDS: DEXTROSE 5%-0.9% NS 1,000 ML 125 ML IV (05:42)
[2018-11-20 06:09] LABS: Alanine Aminotransferase 67 IU/L (9-52); Albumin 3.1 g/dL (3.5-5.0); Albumin Globulin Ratio 1.3 (1.0-2.8); Alkaline Phosphatase 65 U/L (38-126); Aspartate Aminotransferase 43 IU/L (14-36); Bilirubin Total 1.1 mg/dL (0.2-1.3); Blood Urea Nitrogen 9 mg/dL (7-17); Calcium 7.9 mg/dL (8.4-10.2); Carbon Dioxide 25 mmol/L (22-32); Chloride 108 mmol/L (98-107); Estimated Glomerular Filt Rate > 60.0 mL/min (>60); Globulin 2.4 g/dL (1.7-4.1); Glucose 110 mg/dL (80-110); HEMOLYSIS < 15 (0-50); Potassium 3.3 mmol/L (3.4-5.1); Sodium 138 mmol/L (137-145); Total Protein 5.5 g/dL (6.3-8.2)
[2018-11-20 06:14] LABS: Lipase 603 U/L (23-300)
[2018-11-20 07:30] VITALS: BP 106/66; PULSE 61; RESP 16; TEMP 36.7; O2SAT 97
[2018-11-20] MEDS: POTASSIUM CHLORIDE 40 MEQ in SODIUM CHLORIDE 0.9% 500 ML 130 ML IV (08:38)
[2018-11-20] MEDS: ENOXAPARIN 40 MG/0.4 ML SYRINGE SUBCUT (08:43)
[2018-11-20] MEDS: PANTOPRAZOLE 40 MG VIAL 20 MG IV (08:44)
--- NOTE | 2018-11-20 10:36 | P.PN_ITS ---
Subjective Date Patient Seen: 11/20/18 Interval history: The patient is a 68-year-old female who was admitted to the hospital for acute pancreatitis. She is status post cholecystectomy 15 years ago. The patient had an MRCP yesterday which was negative for choledocholithiasis or any cystic duct dilatation. She reports her pain has improved. Her pain was 10/10 upon arrival but now is about 4/10 in intensity sh e is ready to advance her diet. The patient has no nausea or vomiting. Exam Vital Signs (past 8 hours): - 11/20/18 04:00 11/20/18 07:30 Temperature 98.5 F 98.1 F Pulse Rate 66 61 Respiratory Rate 18 16 Blood Pressure 121/51 L 106/66 Pulse Oximetry 96 97 Oxygen Delivery Method Room Air Oxygen Flow Rate 0 Narrative Exam Narrative: Pleasant female in no acute distress Lungs: Clear to auscultation Cardiac exam: Regular rate and rhythm normal S1-S2 Abdomen: Soft, mildly tender, no rebound Ext: no edema Objective Labs Result Diagrams: 11/19/18 05:24 11/20/18 05:40 Labs: Laboratory Results - last 24 hr 11/20/18 11/20/18 05:40 05:40 Sodium 138 Potassium 3.3 L Chloride 108 H Carbon Dioxide 25 BUN 9 Creatinine 0.50 L Estimated GFR > 60.0 BUN/Creatinine Ratio 18.0 Glucose 110 Calcium 7.9 L Total Bilirubin 1.1 AST 43 H ALT 67 H Alkaline Phosphatase 65 Total Protein 5.5 L Albumin 3.1 L Globulin 2.4 Albumin/Globulin Ratio 1.3 Lipase 603 H D Assessment & Plan Assessment & Plan narrative: 1. Acute pancreatitis, etiology unclear, improving daily. Will discontinue IV fluids, start clear liquids and advanced diet as tolerated. MRCP negative 2. Gastroesophageal reflux disease. Will continue Protonix but switched to p.o.. Plan to discharge the patient when she can tolerate p.o. with no further nausea vomiting or abdominal pain.
[2018-11-20 12:35] VITALS: BP 135/69; PULSE 68; RESP 16; TEMP 36.4; O2SAT 100
--- NOTE | 2018-11-20 13:08 | PC.NURSE ---
Shift summary: Alert and oriented X3. Denies N/V. Rates achy epigastric abd pain 5/10 and has not wanted/required any pain meds. Abd soft, nontender. BT+, hypoactive. Flatus+. Tolerated clear liquids at lunch without issue. Advanced to low fat diet for dinner (per Dr De Leon's orders). Patient ambulated [facility] with her and is steady on her feet. K-rider infusing at 100 ml/hr (IV site was burning at ordered rate of 130 ml/hr), order to saline lock once infused. Using IS intermittently on her own, getting up between [id number]. Able to move herself in bed. Able to make needs known and calls appropriately. She's napping at this time. Light in reach, bed alarm on.
[2018-11-20 15:30] VITALS: BP 126/66; PULSE 59; RESP 16; TEMP 36.9; O2SAT 98
[2018-11-20 19:05] VITALS: BP 133/77; PULSE 61; RESP 17; TEMP 37; O2SAT 96
[2018-11-20] MEDS: SODIUM CHLORIDE 0.9% FLUSH 10 ML IV (20:50)
[2018-11-20 23:52] VITALS: O2SAT 96
[2018-11-21 00:12] VITALS: BP 130/63; PULSE 69; RESP 16; TEMP 36.6; O2SAT 96
[2018-11-21 04:24] VITALS: BP 131/78; PULSE 63; RESP 16; TEMP 36.9; O2SAT 95
[2018-11-21] MEDS: PANTOPRAZOLE 40 MG PACKET PO (06:46)
[2018-11-21 08:00] VITALS: O2SAT 95
[2018-11-21 08:10] VITALS: BP 134/79; PULSE 68; RESP 17; TEMP 36.9; O2SAT 94
--- NOTE | 2018-11-21 08:32 | PM.DS.1 ---
History of Present Illness Date Patient Seen: 11/21/18 Chief complaint: Abd Pain Narrative: Ms Apryl Sierra is a 68-year-old female patient with a history significant only for skin cancer and gastroesophageal reflux presents today for acute onset of abdominal pain. The patient and has not traveled from [place] to [place] 1 week ago during which time she was fine without complaints of pain or problems. Today she developed generalized abdominal pain with associated nausea and vomiting. The patient was seen in a clinic on [place] where she received Dilaudid for pain and was subsequently transferred to [facility] for continuing care. The patient states she has not had symptoms such as this before and had no prodromal complaints of illness. She denies fevers or chills and has no headaches or dizziness. Denies chest pain or palpitations, shortness of breath cough or wheezing. She has had nausea and vomiting that developed after the onset of abdominal pain and denies change in frequency or character of bowel movements. She denies complaints of dysuria or hematuria. She Has no complaints of muscle or joint pains and is independent in her ADLs and uses no assistive devices. Upon arrival in the ER the patient is afebrile with a temperature of 98.7? has a blood pressure of 120/72, heart rate of 66 respirations of 12 and saturation on room air of 95%. The patient underwent CT exam of the abdomen which found thickening of the distal esophagus and moderate extrahepatic ductal dilation without evidence of obstruction and is thought to be related to inflammation at the head of the pancreas. The pancreas is mildly enlarged and peripancreatic fluid is noted without focal fluid collections. Hepatic steatosis is also noted. Lab work finds a white count of 9.3 with a hemoglobin of 14.1 and hematocrit of 40.5 and platelets 178. Chemistries are within normal limits with a nonfasting glucose of 139. Lipase is found to be markedly elevated at 29 1973, AST mildly elevated at 137 and ALT at 93 with a normal alkaline phosphatase at 85. Coags are within normal limits. WBCs are identified in the urine which is sent for culture. The patient is admitted to the hospital for acute pancreatitis. Discharge Providers Date of admission: 11/18/18 22:14 Discharge Date: 11/21/18 Consults: 11/18/18 23:09 Consult to Discharge Planning Routine Comment: Discharge provider: Taty De Leon MD Summary Discharge Diagnosis: 1. Acute pancreatitis etiology unclear 2. Gastroesophageal reflux 3. Hypokalemia, resolved Hospital Course: The patient was admitted to the hospital for acute abdominal pain. Laboratory studies and CT scan confirmed acute pancreatitis. Patient had a CT scan of the abdomen this showed edema the pancreatic head but no pancreatic necrosis. The patient had minimal biliary ductal dilatation at 10 mm consistent with her cholecystectomy. The patient underwent an MRCP. This was negative for choledocholithiasis, cystic duct stone or other abnormalities. The patient was made NPO. She was given IV fluids and antiemetics. She slowly had improvement of her symptoms. She was found to be hypokalemic and this was replaced. The patient was able to advance her diet. Tolerated this without difficulty. She has no further abdominal pain or nausea. The patient is deemed appropriate for discharge a plans are being made for her to be discharged home. Status at Discharge Cognitive/behavioral status at discharge: oriented Functional status at discharge: independent ambulation Overall status at discharge: patient is back to baseline Time Spent with Patient Less than 30 minutes Exam Vital Signs (past 8 hours): - 11/21/18 04:24 11/21/18 08:00 Temperature 98.4 F Pulse Rate 63 Respiratory Rate 16 Blood Pressure 131/78 Pulse Oximetry 95 95 Oxygen Delivery Method Room Air Oxygen Flow Rate 0 Narrative Exam Narrative: Pleasant female in no acute distress Lungs: Clear to auscultation Cardiac exam: Regular rate rhythm normal S1-S2 Abdomen: Soft nontender nondistended Extremities: No edema Objective Labs Result Diagrams: 11/19/18 05:24 11/20/18 05:40 Discharge Plan Discharge Plan Discharge Problem: Pancreatitis Patient Disposition: Home Discharge comment: Patient to follow up with her PCP when she returns to [place] in 2 weeks Discharge Med Rec/Prescriptions Prescriptions: Continued omeprazole 20 mg Capsule,Delayed Release(Dr/Ec) 20 mg PO DAILY RF: 0 Provider Discharge Instructions Diet: Diet as Tolerated Activity: as tolerated Oxygen: not indicated Discharge Data Attending Provider: Roberto Saldana Admit Date/Time: 11/18/18 22:14
--- NOTE | 2018-11-21 09:24 | PC.NURSE ---
Day shift: Pt left unit in with [facility] to private car driven by Pt's spouse. They are on there way back to [place] to finish vacation. Spouse is retired RN of 42 years. Paperwork signed and all questions answered. Pt has all persoanl belongings. No new MD scrips.
== END 2018-11-21 09:26 | disposition home or self-care (01) | DRG 440 ==
LOC: ED 20:25 → AC 22:14
PROVIDERS: Internal Medicine; Admitting Provider Nurse Practitioner Adult Health; Emergency Provider Emergency Medicine; Visit Provider Nurse Practitioner Adult Health
DX: K85.90 Acute pancreatitis without necrosis or infection, unspecified (principal); K21.9 Gastro-esophageal reflux disease without esophagitis; E87.6 Hypokalemia; R51 Headache
CPT/HCPCS: 36415; 74177; 74181; 80048; 80053; 80061; 81003; 81015; 82962; 83690; 85025; 85610; 85730; 87077; 87086; 87186; 93005; 93010; 96361; 96374; 99283; 99285; C9113; J1170; J1650; J2270; J3480; Q9967

== ENCOUNTER 2021-02-08 16:16 | Inpatient (IN) | payer OTHER, SELFPAY ==
[2021-02-08] VITALS (8 sets, daily range): BP systolic 147–166; BP diastolic 70–89; PULSE 63–78; RESP 14–18; TEMP 36.3–36.7; O2SAT 96–99; BMI 29.2; BMI 29.5
[2021-02-08] MEDS: ONDANSETRON 4 MG/2 ML INJ IV (17:42)
[2021-02-08] MEDS: SODIUM CHLORIDE 0.9% 1,000 ML 1000 ML IV ×2 (17:50→20:01)
[2021-02-08] MEDS: HYDROMORPHONE 0.5 MG INJ IV (17:50)
[2021-02-08 18:14] LABS: Add Manual Diff / Slide Review NO; Basophils Absolute Auto 0 /uL (0-100); Basophils Percent Auto 0.5 % (0-2); Eosinophils Absolute Auto 100 /uL (0-450); Eosinophils Percent Auto 1.5 % (2-4); Hematocrit 39.9 % (36-46); Hemoglobin 13.8 g/dL (12.0-16.0); Lymphocytes Absolute Auto 1100 /uL (1100-4500); Lymphocytes Percent Auto 19.2 % (25-40); Mean Corpuscular HGB Conc 34.7 % (30-36); Mean Corpuscular Hemoglobin 31.1 PG (26-34); Mean Corpuscular Volume 89.7 fL (80-100); Monocytes Absolute Auto 300 /uL (0-900); Monocytes Percent Auto 5.8 % (3-14); Neutrophils Absolute Auto 4100 /uL (1500-7000); Platelet Count 170 X10^3/uL (150-400); Red Blood Cell Count 4.45 X10^6/uL (4.0-5.2); Red Cell Distribution Width 12.7 % (11.6-14.8); White Blood Cell Count 5.6 X10^3/uL (4.5-11.0)
[2021-02-08 18:25] LABS: Alanine Aminotransferase 112 IU/L (<35); Albumin 3.9 g/dL (3.5-5.0); Albumin Globulin Ratio 1.6 (1.0-2.8); Alkaline Phosphatase 79 U/L (38-126); Aspartate Aminotransferase 149 IU/L (14-36); BUN Creatinine Ratio 23.4 (6-22); Bilirubin Total 1.1 mg/dL (0.2-1.3); Blood Urea Nitrogen 15 mg/dL (7-17); Calcium 8.9 mg/dL (8.4-10.2); Carbon Dioxide 29 mmol/L (22-32); Chloride 107 mmol/L (98-107); Estimated Glomerular Filt Rate > 60.0 mL/min (>60); Globulin 2.5 g/dL (1.7-4.1); Glucose 103 mg/dL (80-110); HEMOLYSIS < 15 (0-50); Sodium 140 mmol/L (137-145); Total Protein 6.4 g/dL (6.3-8.2)
--- NOTE | 2021-02-08 18:42 | ED_ITS ---
HPI - Abdominal Pain General Chief Complaint: Abdominal Pain Stated Complaint: HURTS UNDER RIB CAGE Time Seen by Provider: 02/08/21 18:42 Source: patient Mode of arrival: Ambulatory Limitations: no limitations History of Present Illness HPI narrative: This is a 71-year-old female who comes today with complaint of li salima pancreatitis. She states she developed epigastric pain that feels similar to her prior episodes. She has had 2 prior episodes both in November of 2018 followed by November of 2019. Patient states she does not drink alcohol. She denies fevers. She denies chest pain or shortness of breath. No nausea or vomiting. No diarrhea constipation. No black or bloody stools. Patient denies any radiation of her pain to her back, abdomen or flank or chest. She does take omeprazole daily as well as meloxicam. She has had cholecystectomy, oophorectomy, hysterectomy and ORIF of a broken lower extremity. She is allergic to penicillin. She states she is allergic to some kind of pain medication but does not know what it is or what happens. She lives in [place] and travels here intermittently. She does not have a local primary care provider. Related Data Home Medications Medication Instructions Recorded Confirmed omeprazole 20 mg capsule,delayed 20 mg PO DAILY 11/18/18 02/08/21 release meloxicam 15 mg tablet 15 mg DAILY 02/08/21 02/08/21 Allergies Allergy/AdvReac Type Severity Reaction Status Date / Time Penicillins Allergy Severe Anaphylaxis Verified 02/08/21 16:54 Review of Systems Review of Systems ROS Unobtainable: All systems reviewed & are unremarkable except as noted in HPI and below Patient History Medical History GERD (gastroesophageal reflux disease) Skin cancer Surgical History Broken ankle History of breast lump/mass excision History of hysterectomy Hx of cholecystectomy Status post trigger finger release Social History household members: spouse Smoking Status: Never smoker alcohol intake: never Smoking Status: Never smoker alcohol intake frequency: holidays/special occasions only Substance Use Type: does not use Exam Narrative Exam Narrative: GENERAL: Alert and oriented x three, elderly female in mild distress. HEENT: Head normocephalic, atraumatic, EOMI, pupils reactive, face symmetric, moist mucous membranes NECK: Supple, full range of motion CARDIOVASCULAR: Regular rate and rhythm without murmurs, rubs or gallops. RESPIRATORY: Breath sounds equal bilaterally, no wheezes rales or rhonchi. ABDOMEN: Soft, positive for epigastric tenderness.. Normoactive bowel sounds all 4 quadrants. No guarding or rebound, rigidity, no mass, nondistended. : No CVA tenderness EXTREMITIES: Normal range of motion, no edema. Neurovascularly intact NEUROLOGICAL: Cranial nerves II through XII grossly intact. Moving all extremities SKIN: Warm, dry, no petechiae, no rashes or lesions. Initial Vital Signs Initial Vital Signs: Vital Signs Temperature 98.0 F 02/08/21 16:49 Pulse Rate 78 02/08/21 16:49 Respiratory Rate 14 02/08/21 16:49 Blood Pressure 166/77 H 02/08/21 16:49 Pulse Oximetry 99 02/08/21 16:49 Course Orders Ordered: ED Orders 02/08/21 16:55 EKG-12 Lead Stat 02/08/21 18:10 Complete Blood Count AUTO DIFF Stat Comprehensive Metabolic Panel Stat Lipase Stat 02/08/21 18:11 Amylase Urgent Lactate Dehydrogenase Urgent Lipid Panel Urgent Magnesium Urgent 02/08/21 18:53 CT abdomen pelvis w con Stat 02/08/21 19:08 COVID19 - ADMIT ([employer] swab/PCR) Stat 02/08/21 20:36 Education, smoking cessation ONGOING 02/09/21 05:00 Basic Metabolic Panel Routine Hemoglobin and Hematocrit Routine Hepatic (Liver) Panel DAILY Lipase Routine Prothrombin Time INR Routine 02/10/21 05:00 Hepatic (Liver) Panel DAILY 02/11/21 05:00 Hepatic (Liver) Panel DAILY Acetaminophen (Acetaminophen 325 Mg Tablet) 650 mg PO Q6HR PRN PRN Reason: Fever/Mild Pain (1-3) Enoxaparin Sodium (Enoxaparin 40 Mg/0.4 Ml Syringe) 40 mg SUBCUT DAILY HUGO Hydromorphone HCl (Hydromorphone 0.5 Mg Inj) 0.5 mg IV Q6H PRN PRN Reason: Pain, Moderate (4-6) Sodium Chloride (Normal Saline 0.9%) 1,000 mls @ 150 mls/hr IV CONT HUGO Last Admin: 02/08/21 21:41 Dose: 150 mls/hr Documented by: DOLLY Naloxone HCl (Naloxone 0.4 Mg/Ml Vial) 0.2 mg IV Q2MIN PRN PRN Reason: Opiate Reversal Ondansetron HCl (Ondansetron 4 Mg/2 Ml Inj) 4 mg IV Q8HR PRN PRN Reason: Nausea And Vomiting Discontinued Medications Hydromorphone HCl (Hydromorphone 0.5 Mg Inj) 0.5 mg IV NOW ONE Stop: 02/08/21 17:47 Last Admin: 02/08/21 17:50 Dose: 0.5 mg Documented by: MINGO Sodium Chloride (Normal Saline 0.9%) 1,000 mls @ 1,000 mls/hr IV BOLUS ONE Stop: 02/08/21 18:41 Last Infusion: 02/08/21 18:50 Dose: 0 mls/hr Documented by: Admin: 02/08/21 17:50 Dose: 1,000 mls/hr Documented by: MINGO Sodium Chloride (Normal Saline 0.9%) 1,000 mls @ 1,000 mls/hr IV BOLUS ONE Stop: 02/08/21 19:52 Last Infusion: 02/08/21 20:54 Dose: 0 mls/hr Documented by: Admin: 02/08/21 20:01 Dose: 1,000 mls/hr Documented by: RAYNE Ondansetron HCl (Ondansetron 4 Mg/2 Ml Inj) 4 mg IV NOW ONE Stop: 02/08/21 16:56 Last Admin: 02/08/21 17:42 Dose: 4 mg Documented by: MINGO Consultations Consultation #1: SUNSHINE Barnes regarding admission, accepts for admission. Review ed labs and todays findings. All questions answered. Vital Signs Vital signs: Vital Signs - 8 hr 02/08/21 16:49 02/08/21 19:05 02/08/21 19:30 Temperature 98.0 F Pulse Rate 78 63 63 Respiratory Rate 14 16 16 Blood Pressure 166/77 H 147/80 H 157/70 H Pulse Oximetry 99 99 98 02/08/21 20:00 02/08/21 20:30 Temperature Pulse Rate 68 64 Respiratory Rate 15 16 Blood Pressure 153/72 H 158/75 H Pulse Oximetry 97 96 MDM - Abdominal Pain Lab Data Result diagrams: 02/08/21 18:10 02/08/21 18:10 Labs: Lab Results 02/08/21 02/08/21 02/08/21 Range/Units 18:10 18:10 18:10 WBC 5.6 (4.5-11.0) X10^3/uL RBC 4.45 (4.0-5.2) X10^6/uL Hgb 13.8 (12.0-16.0) g/dL Hct 39.9 (36-46) % MCV 89.7 (80-100) fL MCH 31.1 (26-34) PG MCHC 34.7 (30-36) % RDW 12.7 (11.6-14.8) % Plt Count 170 (150-400) X10^3/uL Neut % (Auto) 73.0 (50-75) % Lymph % (Auto) 19.2 L (25-40) % [place] % (Auto) 5.8 (3-14) % Eos % (Auto) 1.5 L (2-4) % Baso % (Auto) 0.5 (0-2) % Neut # (Auto) 4100 (2179-3380) /uL Lymph # (Auto) 1100 (3416-7150) /uL [place] # (Auto) 300 (0-900) /uL Eos # (Auto) 100 (0-450) /uL Baso # (Auto) 0 (0-100) /uL Sodium 140 (137-145) mmol/L Potassium 4.0 (3.4-5.1) mmol/L Chloride 107 (98-107) mmol/L Carbon Dioxide 29 (22-32) mmol/L BUN 15 (7-17) mg/dL Creatinine 0.64 (0.52-1.04) mg/dL Estimated GFR > 60.0 (>60) mL/min BUN/Creatinine Ratio 23.4 H (6-22) Glucose 103 (80-110) mg/dL Hemoglobin A1c 4.7 (4.0-6.0) % Calcium 8.9 (8.4-10.2) mg/dL Magnesium (1.6-2.3) mg/dL Total Bilirubin 1.1 (0.2-1.3) mg/dL GGT (12-43) U/L AST 149 H (14-36) IU/L ALT 112 H (<35) IU/L Alkaline Phosphatase 79 (38-126) U/L Lactate Dehydrogenase (313-618) U/L Total Protein 6.4 (6.3-8.2) g/dL Albumin 3.9 (3.5-5.0) g/dL Globulin 2.5 (1.7-4.1) g/dL Albumin/Globulin Ratio 1.6 (1.0-2.8) Triglycerides (35-150) mg/dL Cholesterol (140-199) mg/dL LDL Cholesterol, Calc (<100) mg/dL HDL Cholesterol (40-60) mg/dL Amylase (30-110) U/L Lipase 18699 H (23-300) U/L SARS-CoV-2 (PCR) (Negative) 02/08/21 02/08/21 02/08/21 Range/Units 18:10 18:11 18:11 WBC (4.5-11.0) X10^3/uL RBC (4.0-5.2) X10^6/uL Hgb (12.0-16.0) g/dL Hct (36-46) % MCV (80-100) fL MCH (26-34) PG MCHC (30-36) % RDW (11.6-14.8) % Plt Count (150-400) X10^3/uL Neut % (Auto) (50-75) % Lymph % (Auto) (25-40) % [place] % (Auto) (3-14) % Eos % (Auto) (2-4) % Baso % (Auto) (0-2) % Neut # (Auto) (8331-0312) /uL Lymph # (Auto) (2610-4275) /uL [place] # (Auto) (0-900) /uL Eos # (Auto) (0-450) /uL Baso # (Auto) (0-100) /uL Sodium (137-145) mmol/L Potassium (3.4-5.1) mmol/L Chloride (98-107) mmol/L Carbon Dioxide (22-32) mmol/L BUN (7-17) mg/dL Creatinine (0.52-1.04) mg/dL Estimated GFR (>60) mL/min BUN/Creatinine Ratio (6-22) Glucose (80-110) mg/dL Hemoglobin A1c (4.0-6.0) % Calcium (8.4-10.2) mg/dL Magnesium 2.3 (1.6-2.3) mg/dL Total Bilirubin (0.2-1.3) mg/dL GGT 368 H (12-43) U/L AST (14-36) IU/L ALT (<35) IU/L Alkaline Phosphatase (38-126) U/L Lactate Dehydrogenase 959 H (313-618) U/L Total Protein (6.3-8.2) g/dL Albumin (3.5-5.0) g/dL Globulin (1.7-4.1) g/dL Albumin/Globulin Ratio (1.0-2.8) Triglycerides 117 (35-150) mg/dL Cholesterol 179 (140-199) mg/dL LDL Cholesterol, Calc 103 H (<100) mg/dL HDL Cholesterol 53 (40-60) mg/dL Amylase 882 H (30-110) U/L Lipase (23-300) U/L SARS-CoV-2 (PCR) (Negative) 02/08/21 Range/Units 19:08 WBC (4.5-11.0) X10^3/uL RBC (4.0-5.2) X10^6/uL Hgb (12.0-16.0) g/dL Hct (36-46) % MCV (80-100) fL MCH (26-34) PG MCHC (30-36) % RDW (11.6-14.8) % Plt Count (150-400) X10^3/uL Neut % (Auto) (50-75) % Lymph % (Auto) (25-40) % [place] % (Auto) (3-14) % Eos % (Auto) (2-4) % Baso % (Auto) (0-2) % Neut # (Auto) (8599-5644) /uL Lymph # (Auto) (8646-4931) /uL [place] # (Auto) (0-900) /uL Eos # (Auto) (0-450) /uL Baso # (Auto) (0-100) /uL Sodium (137-145) mmol/L Potassium (3.4-5.1) mmol/L Chloride (98-107) mmol/L Carbon Dioxide (22-32) mmol/L BUN (7-17) mg/dL Creatinine (0.52-1.04) mg/dL Estimated GFR (>60) mL/min BUN/Creatinine Ratio (6-22) Glucose (80-110) mg/dL Hemoglobin A1c (4.0-6.0) % Calcium (8.4-10.2) mg/dL Magnesium (1.6-2.3) mg/dL Total Bilirubin (0.2-1.3) mg/dL GGT (12-43) U/L AST (14-36) IU/L ALT (<35) IU/L Alkaline Phosphatase (38-126) U/L Lactate Dehydrogenase (313-618) U/L Total Protein (6.3-8.2) g/dL Albumin (3.5-5.0) g/dL Globulin (1.7-4.1) g/dL Albumin/Globulin Ratio (1.0-2.8) Triglycerides (35-150) mg/dL Cholesterol (140-199) mg/dL LDL Cholesterol, Calc (<100) mg/dL HDL Cholesterol (40-60) mg/dL Amylase (30-110) U/L Lipase (23-300) U/L SARS-CoV-2 (PCR) Negative (Negative) Imaging Data CT scan - abdomen/pelvis: Radiologist's Impression: Launch?Image [address] [address] [address] Scan Report Signed Patient: Apryl Sierra MR#: [id number] : 1950 Acct:[id number] Age/Sex: 71 / F Date of Service: 02/08/21 Loc: ED Accession Number: [id number] ?? Procedure: CT abdomen pelvis w con Ordering Provider: Radha Nolasco D.O. PROCEDURE:? CT ABDOMEN PELVIS W CON ? INDICATIONS:? pancreatitis, recurrent ? TECHNIQUE:? After the administration of IV contrast, axial sections were acquired from the lung bases to the pubic symphysis.? Coronal and sagittal reformats were performed.? For rad iation dose reduction, the following was used:? automated exposure control, adjustment of mA and/or kV according to patient size. ? COMPARISON:? [facility], CT, CT ABDOMEN PELVIS W CON, 11/18/2018, 19:50. ? FINDINGS:? Image quality:? Excellent.? ? Lung bases:? There is a partially visualized left lower lobe nodule measuring up to 0.8 cm on series 3, image 1 which appears unchanged in size compared to the prior study.? ? Heart:? Normal in size. ? ? ABDOMEN: Liver:? There is hypoattenuation of the liver consistent with fatty infiltration.? ? Gallbladder:? Surgically absent. Biliary ducts:? There is mild biliary ductal dilatation likely related to prior cholecystectomy.? No calcified common duct stones.? ? Pancreas:? There is peripancreatic fat stranding and fluid consistent with acute pancreatitis.? No areas of hypoenhancement to suggest necrosis.? No discrete loculated peripancreatic fluid collections.? No pancreatic duct dilatation.? ? Spleen:? Unremarkable.? ? Adrenal Glands:? Unremarkable.? ? Kidneys and Ureters:? Unremarkable.? ? ? Stomach and Bowel:? Stomach, small bowel loops, and colon are normal in caliber and wall thickness.? No evidence of appendicitis.? Peritoneum:? There is minimal peripancreatic free fluid.? No free air.? ? Ventral Wall: ? No hernia.? Abdominal Nodes:? No retroperitoneal or mesenteric adenopathy by size criteria.? Vessels:? Aorta and inferior vena cava are normal in size.? ? PELVIS: Pelvic Organs:? Unremarkable.? ? Bladder:? Unremarkable.? ? Pelvic Nodes: No enlarged lymph nodes.? Miscellaneous:? There is a small fat-containing right inguinal hernia. ? Bones:? Unremarkable.? IMPRESSION:? ? 1.? Acute interstitial edematous pancreatitis without evidence of an acute peripancreatic fluid collection.? ? ? Dictated by: Oscar Lopez M.D. on 02/08/2021 at 19:54 ? ? Approved by: Oscar Lopez M.D. on 02/08/2021 at 19:57?? ECG Data Attestation: I personally reviewed and interpreted this ECG as follows: Prior ECG tracings: available for review Interpretation: Sinus bradycardia left axis deviation. Rate of 50 6p are 180 QRS of 92 QTC 459. No acute ST changes. Patient has prior EKG from 11/18/2018 which appears similar. MDM Narrative Medical decision making narrative: This is a 71-year-old female comes in with complaint of epigastric pace reminiscent of her prior episodes of pancreatitis. Patient did have an MRCP and CT abdomen pelvis on her last hospitalization which of pancreatitis but no acute blockages. Her lipase is once again 24,000, she has a slight bump in her AST ALT with normal renal function, no leukocytosis for major changes her CBC. Imaging was obtained and shows pancreatitis. Slightly enlarged common bile duct but not outside limits for post cholecystectomy with no obvious blockage or stone. As well as COVID swab. Patient was given fluids, pain control and case was discussed with the hospitalist accepts for admission. Discharge Plan Departure Patient Disposition: Admitted As Inpatient Clinical Impression: Pancreatitis Admit Date/Time: 02/08/21 20:49 Admit Provider: Maris Barnes
[2021-02-08 18:51] LABS: Lipase 24637 U/L (23-300)
--- NOTE | 2021-02-08 18:53 | DI.CT.S_ITS ---
PROCEDURE: CT ABDOMEN PELVIS W CON INDICATIONS: pancreatitis, recurrent TECHNIQUE: After the administration of IV contrast, axial sections were acquired from the lung bases to the pubic symphysis. Coronal and sagittal reformats were performed. For radiation dose reduction, the following was used: automated exposure control, adjustment of mA and/or kV according to patient size. COMPARISON: [facility], CT, CT ABDOMEN PELVIS W CON, 11/18/2018, 19:50. FINDINGS: Image quality: Excellent. Lung bases: There is a partially visualized left lower lobe nodule measuring up to 0.8 cm on series 3, image 1 which appears unchanged in size compared to the prior study. Heart: Normal in size. ABDOMEN: Liver: There is hypoattenuation of the liver consistent with fatty infiltration. Gallbladder: Surgically absent. Biliary ducts: There is mild biliary ductal dilatation likely related to prior cholecystectomy. No calcified common duct stones. Pancreas: There is peripancreatic fat stranding and fluid consistent with acute pancreatitis. No areas of hypoenhancement to suggest necrosis. No discrete loculated peripancreatic fluid collections. No pancreatic duct dilatation. Spleen: Unremarkable. Adrenal Glands: Unremarkable. Kidneys and Ureters: Unremarkable. Stomach and Bowel: Stomach, small bowel loops, and colon are normal in caliber and wall thickness. No evidence of appendicitis. Peritoneum: There is minimal peripancreatic free fluid. No free air. Ventral Wall: No hernia. Abdominal Nodes: No retroperitoneal or mesenteric adenopathy by size criteria. Vessels: Aorta and inferior vena cava are normal in size. PELVIS: Pelvic Organs: Unremarkable. Bladder: Unremarkable. Pelvic Nodes: No enlarged lymph nodes. Miscellaneous: There is a small fat-containing right inguinal hernia. Bones: Unremarkable. IMPRESSION: 1. Acute interstitial edematous pancreatitis without evidence of an acute peripancreatic fluid collection. Dictated by: Oscar Lopez M.D. on 02/08/2021 at 19:54 Approved by: Oscar Lopez M.D. on 02/08/2021 at 19:57
[2021-02-08 20:00] LABS: COVID19 - ADMIT (NP swab/PCR) Negative (Negative)
--- NOTE | 2021-02-08 20:40 | P.HP_ITS ---
History of Present Illness History of Present Illness Date Patient Seen: 02/08/21 Time Patient Seen: 20:41 Chief complaint: HURTS UNDER RIB CAGE Narrative: Apryl Sierra is a 71-year-old female who presented to the ED today with complaint of mid epigastric abd pain likely pancreatitis.? She states she developed epigastric pain that feels similar to her prior episodes of pancreatitis in November of 2018 and November of 2019. ? Patient states she does not drink alcohol.? She denies fevers, chest pain, shortness of breath, chills, nausea, vomiting, diarrhea, constipation, hematemesis, or melena. Denies any radiation of her pain to her back, abdomen or flank or chest.? She does take omeprazole daily as well as meloxicam.? She has had cholecystectomy, oophorectomy, hysterectomy and ORIF of a broken lower extremity.? She is allergic to penicillin.? She states she is allergic to some kind of pain medication but does not know what it is or what happens.? She lives in [place] and travels here intermittently.? She does not have a local primary care provider. 2018 ERCP demonstrated Dilated common bile duct may be within normal limits given the patient's prior cholecystectomy, no evidence of choledocholithiasis.?Positive acute pancreatitis, with no loculated fluid collections or pseudocysts. Mild upper abdominal ascites, and trace bilateral effusions, with distal esophageal wall thickening may be related to esophagitis.? Today upon admit patient continues to complain of epigastric pain that is constant it is improved it is 3 to 4/10 at this time she denies nausea vomiting diarrhea chills fever, and patient is in no distress at this time. But does have body aches. Patient's blood pressure is mildly elevated at 160 6/77 the rest of her vital signs are stable CBC and CMP WNL, her AST 149, ALT 112, lipase 2637, GGT 368, amylase 882, lactate D 959, patient demonstrates no hyperlipidemia or diabetes LDL is 103, A1c 4.7%, patient denies alcohol use. Patient admitted for acute on chronic pancreatitis. Patient History Medical History GERD (gastroesophageal reflux disease) Skin cancer Surgical History Broken ankle History of breast lump/mass excision History of hysterectomy Hx of cholecystectomy Status post trigger finger release Family & Social History Family History Mother Dementia Father Stroke Social History: household members spouse Safety & Behavioral: Feels Safe in Current Yes Environment Been Physically Hurt or No Threatened By a Person Tobacco & Substance use: Smoking Status Never smoker alcohol intake never alcohol intake frequency holiday/special occasion Substance Use Type does not use Meds Home Medications and Allergies Home Medications Medication Instructions Recorded Confirmed Type omeprazole 20 mg capsule,delayed 20 mg PO DAILY 11/18/18 02/08/21 History release meloxicam 15 mg tablet 15 mg DAILY 02/08/21 02/08/21 History Allergies Allergy/AdvReac Type Severity Reaction Status Date / Time Penicillins Allergy Severe Anaphylaxis Verified 02/08/21 16:54 Review of Systems Review of Systems Narrative: All 12 point systems reviewed with the patient and are negative except otherwise documented. Exam Vital Signs (past 8 hours): - 02/08/21 16:49 Temperature 98.0 F Pulse Rate 78 Respiratory Rate 14 Blood Pressure 166/77 H Pulse Oximetry 99 Oxygen Delivery Method Room Air Narrative Exam Narrative: General: Patient is a well-developed, well-nourished female in no distress at this time. HEENT: Normocephalic, atraumatic, extraocular muscles intact, oral pharynx is clear and mucous membranes are moist. Neck is supple and symmetric, trachea is midline, no adenopathy, no thyroid enlargement, nontender, no masses palpated. Negative for JVD Chest: Normal AP diameter and contour without kyphoscoliosis, no nasal flaring, retractions, or tachypneic labored Lungs: Auscultation of all lung monreal are clear without adventitious sounds, wheezes, rhonchi, or rales. Cardio: S1 & S2 with regular rate and rhythm without murmur, rubs, or gallops, no carotid bruit, no cardiac pulsations present. Abdomen: Soft mid epigastric tenderness, negative for organomegaly, or masses. Bowel sounds are present in all 4 quadrants without guarding or rebound, no CVA tenderness. Musculoskeletal: Muscle strength and tone are equal within normal limits, no deformity, crepitus, effusions, cyanosis, clubbing or edema present. Full range of motion intact radial and pedal pulses are normal. Skin: Warm dry and intact without rashes, ulcerations or petechiae. Neuro: Alert and orientated x3, strength is +5/5 in all extremities, sensation to touch intact, no gross deficits noted of cranial nerves. Psych: Patient has a well-kept appearance, appropriate affect, mental status attitude thought context and judgment are appropriate for age. Objective Labs Result Diagrams: 02/08/21 18:10 02/08/21 18:10 Labs: Laboratory Results - last 24 hr 02/08/21 02/08/21 02/08/21 18:10 18:10 19:08 WBC 5.6 RBC 4.45 Hgb 13.8 Hct 39.9 MCV 89.7 MCH 31.1 MCHC 34.7 RDW 12.7 Plt Count 170 Neut % (Auto) 73.0 Lymph % (Auto) 19.2 L Wheeler % (Auto) 5.8 Eos % (Auto) 1.5 L Baso % (Auto) 0.5 Neut # (Auto) 4100 Lymph # (Auto) 1100 Wheeler # (Auto) 300 Eos # (Auto) 100 Baso # (Auto) 0 Sodium 140 Potassium 4.0 Chloride 107 Carbon Dioxide 29 BUN 15 Creatinine 0.64 Estimated GFR > 60.0 BUN/Creatinine Ratio 23.4 H Glucose 103 Calcium 8.9 Total Bilirubin 1.1 AST 149 H ALT 112 H Alkaline Phosphatase 79 Total Protein 6.4 Albumin 3.9 Globulin 2.5 Albumin/Globulin Ratio 1.6 Lipase 50989 H SARS-CoV-2 (PCR) Negative Assessment & Plan Assessment & Plan narrative: This is a 71-year-old female patient presents to the hospital with acute onset of epigastric abdominal pain today with out associated nausea vomiting.? The patient is admitted for acute on chronic pancreatitis. 1. Acute on chronic pancreatitis, present on admission.-unknown etiology -patient has had 2 prior episodes of acute pancreatitis, the episodes have prior occurred in November of 2018 & 2019. Hx of cholecystectomy. -patient with onset of symptoms midepigastric abdominal pain today with no associated nausea vomiting, no history of alcohol consumption. -Abd/Pelvis CT demonstrated Acute interstitial edematous pancreatitis without evidence of an acute peripancreatic fluid collection.? -Pain in ED 02/22, on admit 08/23. -rule out peptic ulcer disease, superimposed pancreatic carcinoma, narcotic bowel, gastroparesis, pancreatic pseudocyst, duodenal or biliary obstruction. -MRCP ordered -the patient has mid-epigastric abdominal pain, patient be given Dilaudid 0.5 mg to 1 mg every 6 hours as needed for pain. -Zofran 4 mg every 8 hours as needed for nausea -patient is NPO may advance to clear liquids with cessation of N&V, then advance as tolerated to regular diet -normal saline at 150 cc/hour. -Trend liver enzymes 2. Chronic Gastroesophageal reflux disorder, chronic, present on admission -Continue omeprazole 20 mg daily. 3. Elevated blood pressure on admission without the diagnosis of hypertension, acute, present on admission -admit BP 166/77 -monitor b/p Code status:Full Surrogate decision maker: Spouse Jax Sierra COVID PCR:Negative COVID vaccination: Unknown DVT/VTE prophylaxis: Lovenox 40 mg and SCDs Disposition: Patient admitted for observation expected length of stay less than 2 midnights I have utilized all available immediate resources to obtain, update, or review the patient's current medications. I confirmed that the patient's advanced care plan is present, Code status is documented and/or surrogate decision maker is listed in the patient's medical record. Time Spent With Patient Critical Care time: I spent a total of [] minutes of critical care time on this patient's care today; this time is exclusive of procedural time. Scores GCS Jaden coma scale eye opening: Spontaneous [place] coma scale verbal response: Orientated Jaden coma scale motor response: Obey commands Jaden coma scale total score: 15
[2021-02-08 20:54] LABS: Amylase 882 U/L (30-110)
[2021-02-08 20:55] LABS: Cholesterol 179 mg/dL (140-199); HDL Cholesterol 53 mg/dL (40-60); LDL Cholesterol Calculated 103 mg/dL (<100); Lactate Dehydrogenase 959 U/L (313-618); Magnesium 2.3 mg/dL (1.6-2.3); Triglycerides 117 mg/dL (35-150)
[2021-02-08] MEDS: SODIUM CHLORIDE 0.9% 1,000 ML 150 ML IV (21:41)
--- NOTE | 2021-02-08 22:19 | DI.MRI.S_ITS ---
PROCEDURE: MR ABDOMEN WO CON INDICATIONS: Acute on chronic pancreatitis TECHNIQUE: Coronal HASTE through the abdomen, axial 2-D FLASH in- and [id number], and breath-hold T2 FSE with fat saturation through the biliary system and pancreas. Oblique coronal and axial thin-slice HASTE, radial thick-slab HASTE centered on the extrahepatic bile ducts. Intravenous secretin: Not requested. COMPARISON: [facility], CT, CT ABDOMEN PELVIS W CON, 02/08/2021, 19:21. [facility], MR, MR ABDOMEN WO CON, 11/19/2018, 14:09. FINDINGS: Image quality: Adequate. There is respiratory motion. Pancreas and biliary system: Mild peripancreatic edema. No peripancreatic fluid collections. Normal pancreatic duct caliber and classic ductal anatomy. Moderate edema in the anthony hepatis. The common hepatic duct is dilated at 1.4 cm. The gallbladder is surgically absent. No significant intrahepatic biliary dilatation. Residual cystic duct appears normal. Common bile duct is 0.7 cm, appropriate post cholecystectomy and for the patient's age. Common duct tapers normally to the ampulla and there are no intrinsic filling defects. Other solid organs: Liver is normal in size. Moderate T1 out of phase signal drop indicating diffuse hepatic steatosis. Spleen is normal in size. No adrenal nodules. Both kidneys are normal in size, without hydronephrosis. Nodes and vessels: No retroperitoneal or mesenteric adenopathy by size criteria. Aorta and inferior vena cava are normal in size. Bowel and peritoneum: Unenhanced bowel loops are normal in caliber. No free fluid. Lung bases: No basal pleural effusions. Heart size is normal. Bones and soft tissues: No ventral hernias. Bone marrow is of normal overall signal. IMPRESSION: 1. No significant change in degree of extrahepatic biliary dilatation compared to the prior MRI. This is likely secondary to patient's post cholecystectomy state. There are no intrinsic filling defects to suggest etiology of pancreatitis. Pancreatitis has not increased the degree of biliary dilatation. 2. Findings of mild acute interstitial pancreatitis. Edema is also seen in the anthony hepatis. 3. Moderate hepatic steatosis, similar compared to prior. Dictated by: Mary Sanderson M.D. on 02/09/2021 at 11:49 Approved by: Mary Sanderson M.D. on 02/09/2021 at 12:23
[2021-02-08 22:35] LABS: Gamma Glutamyl Transpeptidase 368 U/L (12-43)
[2021-02-08 22:47] LABS: Hemoglobin A1C% w Est Avg Glu 4.7 % (4.0-6.0)
--- NOTE | 2021-02-08 22:54 | PC.NURSE ---
Pt admitted tonight with pancreatitis of unknown etiology, pt alert and oriented x 4. Denies pain at the moment. Pt still needs a UA sample. at the bedside and will be spending the night.
[2021-02-09] VITALS (11 sets, daily range): BP systolic 110–141; BP diastolic 57–72; PULSE 51–65; RESP 16–18; TEMP 35.9–36.3; O2SAT 93–98
[2021-02-09] MEDS: SODIUM CHLORIDE 0.9% 1,000 ML 150 ML IV ×2 (04:15→17:46)
[2021-02-09] MEDS: ACETAMINOPHEN 325 MG TABLET 650 MG PO ×2 (04:18→15:19)
[2021-02-09] MEDS: HYDROMORPHONE 0.5 MG INJ IV ×2 (04:18→09:52)
[2021-02-09 05:45] LABS: Hematocrit 37.8 % (36-46); INR 1.1 (0.9-1.3); Prothrombin Time 12.8 SECONDS (10.1-12.7)
[2021-02-09 05:48] LABS: Alanine Aminotransferase 88 IU/L (<35); Albumin 3.4 g/dL (3.5-5.0); Albumin Globulin Ratio 1.4 (1.0-2.8); Alkaline Phosphatase 72 U/L (38-126); Aspartate Aminotransferase 78 IU/L (14-36); BUN Creatinine Ratio 21.4 (6-22); Bilirubin Total 1.1 mg/dL (0.2-1.3); Bilirubin Unconjugated 0.9 mg/dL (0.0-1.1); Blood Urea Nitrogen 12 mg/dL (7-17); Calcium 8.2 mg/dL (8.4-10.2); Carbon Dioxide 28 mmol/L (22-32); Chloride 109 mmol/L (98-107); Estimated Glomerular Filt Rate > 60.0 mL/min (>60); Globulin 2.4 g/dL (1.7-4.1); Glucose 107 mg/dL (80-110); HEMOLYSIS < 15 (0-50); Potassium 4.1 mmol/L (3.4-5.1); Sodium 138 mmol/L (137-145); Total Protein 5.8 g/dL (6.3-8.2)
[2021-02-09 06:05] LABS: Lipase 6766 U/L (23-300)
[2021-02-09 07:50] LABS: Appearance Urine UA CLEAR; Bilirubin Urine UA NEGATIVE (NEGATIVE); Color Urine UA YELLOW; Glucose Urine UA NEGATIVE (Negative); Ketones Urine UA NEGATIVE (NEGATIVE); Leukocyte Esterase Urine UA TRACE (NEGATIVE); Nitrite Urine UA NEGATIVE (Negative); Occult Blood Urine UA NEGATIVE (Negative); Protein Urine UA NEGATIVE (Negative); Urobilinogen Urine UA 0.2 E.U./dL (0.2)
[2021-02-09 07:59] LABS: Culture Indicated Urine Specimen Cultured; RBC Urine None Seen (0-5/HPF); WBC Urine 1-5/HPF (0-5/HPF)
[2021-02-09 08:00] LABS: Bacteria Urine None Seen
[2021-02-09] MEDS: ONDANSETRON 4 MG/2 ML INJ IV (09:16)
[2021-02-09] MEDS: ENOXAPARIN 40 MG/0.4 ML SYRINGE SUBCUT (09:16)
--- NOTE | 2021-02-09 16:33 | CM.DANOTE ---
DCP/Assessment: Reviewed chart. Patient is a 71yr old female admitted to [facility] with pancreatitis. No PCP listed. Primary payor is 1) [facility]. Met with patient and spouse/Jax at bedside explained CM/SW role. Patient alert and oriented resting in bed comfortably at time of visit. Patient reports that she plans to return to return to [facility] for the winter in a few weeks. Patient does have provider in [facility] but she is unsure of the name. Spouse reports that patient's PCP's get changed often due to payor. Patient and spouse hopeful that she will be able to d/c tomorrow. Patient will need priority boarding for return to [place]. P: Home when stable. KJS Discharge Planning/Care Management CM Discharge Assessment Start: 02/09/21 16:30 Freq: Status: Active Protocol: Document 02/09/21 16:30 KJS (Rec: 02/09/21 16:33 KJS [id number]) Discharge Planning Assessment Assigned Paint Mixer DARLENE Fontana Contact Information Jax Rigo (spouse) # Advance Directives? No History Provided By Patient,Significant Other, Medical Record Prior Living Arrangements House Household Members spouse Type of transporation used prior to Drives own vehicle admit Independent with ADL's Yes Is patient alert and oriented? Yes Caregiver for Another No Barriers to Discharge No Discharge Plan Home Transportation Arrangement Spouse and will need priority boarding to return to [place] Referrals Initiated None needed Whiteboard Updated in Patient Room with Yes name and ext. # of Paint Mixer Review Status In Process Next Review Type Continued Stay Review
--- NOTE | 2021-02-09 16:40 | PM.PN.1 ---
Subjective Subjective Interval history: 71 y/o female admitted to the hospital for acute pancreatitis. Patient reports pain is much improved today 07/23. She denies drinking, has had her gallbladder removed and no other risk factors. She reports a headache and is ready to advance her diet Exam Vital Signs (past 8 hours): - 02/09/21 11:25 02/09/21 15:21 Temperature 97.1 F L 96.7 F L Pulse Rate 64 57 L Respiratory Rate 16 18 Blood Pressure 117/66 110/57 L Pulse Oximetry 93 Oxygen Delivery Method Room Air Oxygen Flow Rate 0 Narrative Exam Narrative: pleasant female in no acute distress Resp Other: Lungs: clear to ausculatation Cardio Other: RRR nl Sl S2 GI Other: Abd: soft/ non tender/ non distended. no HSM, no rebound, no boardlike rigidity Extrem Other: no edema Objective Labs Result Diagrams: 02/09/21 05:30 02/09/21 05:30 Labs: Laboratory Results - last 24 hr 02/08/21 02/08/21 02/08/21 18:10 18:10 18:10 WBC 5.6 RBC 4.45 Hgb 13.8 Hct 39.9 MCV 89.7 MCH 31.1 MCHC 34.7 RDW 12.7 Plt Count 170 Neut % (Auto) 73.0 Lymph % (Auto) 19.2 L [place] % (Auto) 5.8 Eos % (Auto) 1.5 L Baso % (Auto) 0.5 Neut # (Auto) 4100 Lymph # (Auto) 1100 [place] # (Auto) 300 Eos # (Auto) 100 Baso # (Auto) 0 PT INR Sodium 140 Potassium 4.0 Chloride 107 Carbon Dioxide 29 BUN 15 Creatinine 0.64 Estimated GFR > 60.0 BUN/Creatinine Ratio 23.4 H Glucose 103 Hemoglobin A1c 4.7 Calcium 8.9 Magnesium Total Bilirubin 1.1 Conjugated Bilirubin Unconjugated Bilirubin GGT AST 149 H ALT 112 H Alkaline Phosphatase 79 Lactate Dehydrogenase Total Protein 6.4 Albumin 3.9 Globulin 2.5 Albumin/Globulin Ratio 1.6 Triglycerides Cholesterol LDL Cholesterol, Calc HDL Cholesterol Amylase Lipase 88786 H Urine Color Urine Appearance Urine pH Ur Specific [place] Urine Protein Urine Glucose (UA) Urine Ketones Urine Occult Blood Urine Nitrate Urine Bilirubin Urine Urobilinogen Ur Leukocyte Esterase Urine RBC Urine WBC Urine Bacteria Ur Culture Indicated? SARS-CoV-2 (PCR) 02/08/21 02/08/21 02/08/21 18:10 18:11 18:11 WBC RBC Hgb Hct MCV MCH MCHC RDW Plt Count Neut % (Auto) Lymph % (Auto) [place] % (Auto) Eos % (Auto) Baso % (Auto) Neut # (Auto) Lymph # (Auto) [place] # (Auto) Eos # (Auto) Baso # (Auto) PT INR Sodium Potassium Chloride Carbon Dioxide BUN Creatinine Estimated GFR BUN/Creatinine Ratio Glucose Hemoglobin A1c Calcium Magnesium 2.3 Total Bilirubin Conjugated Bilirubin Unconjugated Bilirubin GGT 368 H AST ALT Alkaline Phosphatase Lactate Dehydrogenase 959 H Total Protein Albumin Globulin Albumin/Globulin Ratio Triglycerides 117 Cholesterol 179 LDL Cholesterol, Calc 103 H HDL Cholesterol 53 Amylase 882 H Lipase Urine Color Urine Appearance Urine pH Ur Specific [place] Urine Protein Urine Glucose (UA) Urine Ketones Urine Occult Blood Urine Nitrate Urine Bilirubin Urine Urobilinogen Ur Leukocyte Esterase Urine RBC Urine WBC Urine Bacteria Ur Culture Indicated? SARS-CoV-2 (PCR) 02/08/21 02/09/21 02/09/21 19:08 05:30 05:30 WBC RBC Hgb 13.0 Hct 37.8 MCV MCH MCHC RDW Plt Count Neut % (Auto) Lymph % (Auto) [place] % (Auto) Eos % (Auto) Baso % (Auto) Neut # (Auto) Lymph # (Auto) [place] # (Auto) Eos # (Auto) Baso # (Auto) PT 12.8 H INR 1.1 Sodium Potassium Chloride Carbon Dioxide BUN Creatinine Estimated GFR BUN/Creatinine Ratio Glucose Hemoglobin A1c Calcium Magnesium Total Bilirubin Conjugated Bilirubin Unconjugated Bilirubin GGT AST ALT Alkaline Phosphatase Lactate Dehydrogenase Total Protein Albumin Globulin Albumin/Globulin Ratio Triglycerides Cholesterol LDL Cholesterol, Calc HDL Cholesterol Amylase Lipase Urine Color Urine Appearance Urine pH Ur Specific [place] Urine Protein Urine Glucose (UA) Urine Ketones Urine Occult Blood Urine Nitrate Urine Bilirubin Urine Urobilinogen Ur Leukocyte Esterase Urine RBC Urine WBC Urine Bacteria Ur Culture Indicated? SARS-CoV-2 (PCR) Negative 02/09/21 02/09/21 05:30 07:47 WBC RBC Hgb Hct MCV MCH MCHC RDW Plt Count Neut % (Auto) Lymph % (Auto) [place] % (Auto) Eos % (Auto) Baso % (Auto) Neut # (Auto) Lymph # (Auto) [place] # (Auto) Eos # (Auto) Baso # (Auto) PT INR Sodium 138 Potassium 4.1 Chloride 109 H Carbon Dioxide 28 BUN 12 Creatinine 0.56 Estimated GFR > 60.0 BUN/Creatinine Ratio 21.4 Glucose 107 Hemoglobin A1c Calcium 8.2 L Magnesium Total Bilirubin 1.1 Conjugated Bilirubin 0.0 Unconjugated Bilirubin 0.9 GGT AST 78 H ALT 88 H Alkaline Phosphatase 72 Lactate Dehydrogenase Total Protein 5.8 L Albumin 3.4 L Globulin 2.4 Albumin/Globulin Ratio 1.4 Triglycerides Cholesterol LDL Cholesterol, Calc HDL Cholesterol Amylase Lipase 6766 H D Urine Color Yellow Urine Appearance Clear Urine pH 6.0 Ur Specific [place] 1.010 Urine Protein Negative Urine Glucose (UA) Negative Urine Ketones Negative Urine Occult Blood Negative Urine Nitrate Negative Urine Bilirubin Negative Urine Urobilinogen 0.2 Ur Leukocyte Esterase Trace H Urine RBC None seen Urine WBC 1-5/hpf Urine Bacteria None seen Ur Culture Indicated? Specimen cultured SARS-CoV-2 (PCR) PFS Medical History GERD (gastroesophageal reflux disease) Skin cancer Surgical History Broken ankle History of breast lump/mass excision History of hysterectomy Hx of cholecystectomy Status post trigger finger release Family History Mother Dementia Father Stroke Social History household members: spouse Smoking Status: Never smoker alcohol intake: never Assessment & Plan Assessment & Plan narrative: This is a 71-year-old female patient presents to the hospital with acute onset of epigastric abdominal pain today with out associated nausea vomiting.? The patient is admitted for acute on chronic pancreatitis. 1. Acute on chronic pancreatitis, present on admission.-unknown etiology -patient has had 2 prior episodes of acute pancreatitis, the episodes have prior occurred in November of 2018 & 2019. Hx of cholecystectomy. -patient with onset of symptoms midepigastric abdominal pain today with no associated nausea vomiting, no history of alcohol consumption. -Abd/Pelvis CT demonstrated?Acute interstitial edematous pancreatitis without evidence of an acute peripancreatic fluid collection.? -Pain in ED 02/22, on admit 08/23. -rule out peptic ulcer disease, superimposed pancreatic carcinoma, narcotic bowel, gastroparesis, pancreatic pseudocyst, duodenal or biliary obstruction. -MRCP ordered -the patient has mid-epigastric abdominal pain, patient be given Dilaudid 0.5 mg to 1 mg every 6 hours as needed for pain. -Zofran 4 mg every 8 hours as needed for nausea -patient is NPO may advance to clear liquids with cessation of N&V, then advance as tolerated to regular diet -normal saline at 150 cc/hour. -Trend liver enzymes -MRCP, Pancreatitis, no biliary dilatation except as expected post choly -Needs outpatient GI eval ? need for ERCP given recurrent episodes -advance diet to low fat 2. Chronic Gastroesophageal reflux disorder, chronic, present on admission -Continue omeprazole 20 mg daily. 3. Elevated blood pressure on admission without the diagnosis of hypertension, acute, present on admission -admit BP 166/77 -monitor b/p ? Code status:Full Surrogate decision maker: Spouse Jax Sierra Time Spent With Patient Critical Care time: I spent a total of [] minutes of critical care time on this patient's care today; this time is exclusive of procedural time. Quality VTE Deep Vein Thrombosis/Pulmonary Embolism Present on Admission: No
[2021-02-10] VITALS (7 sets, daily range): BP systolic 126–136; BP diastolic 45–65; PULSE 65–67; RESP 16–18; TEMP 36.1–36.7; O2SAT 94–97
[2021-02-10] MEDS: SODIUM CHLORIDE 0.9% 1,000 ML 150 ML IV ×2 (00:17→07:33)
[2021-02-10 05:50] LABS: Alanine Aminotransferase 92 IU/L (<35); Albumin 3.1 g/dL (3.5-5.0); Albumin Globulin Ratio 1.4 (1.0-2.8); Alkaline Phosphatase 68 U/L (38-126); Aspartate Aminotransferase 69 IU/L (14-36); Bilirubin Total 0.9 mg/dL (0.2-1.3); Bilirubin Unconjugated 0.7 mg/dL (0.0-1.1); Globulin 2.2 g/dL (1.7-4.1); HEMOLYSIS < 15 (0-50); Total Protein 5.3 g/dL (6.3-8.2)
--- NOTE | 2021-02-10 06:48 | PC.NURSE ---
Pt is A and O x 4, VSS. Denies pain. Liver enzymes elevated. Able to eat, drink and sleep. Voiding clear yellow qs independently in BR. Slept most of noc shift. Spouse in room.
[2021-02-10] MEDS: ENOXAPARIN 40 MG/0.4 ML SYRINGE SUBCUT (09:14)
--- NOTE | 2021-02-10 10:59 | PM.DS.1 ---
History of Present Illness History of Present Illness Date Patient Seen: 02/10/21 Time Patient Seen: 10:59 Chief complaint: HURTS UNDER RIB CAGE Narrative: Apryl Sierra is a 71-year-old female who presented to the ED today with complaint of mid epigastric abd pain likely pancreatitis.? She states she developed epigastric pain that feels similar to her prior episodes of pancreatitis in November of 2018 and November of 2019. ? Patient states she does not drink alcohol.? She denies fevers, chest pain, shortness of breath, chills, nausea, vomiting, diarrhea, constipation, hematemesis, or melena.? Denies any radiation of her pain to her back, abdomen or flank or chest.? She does take omeprazole daily as well as meloxicam.? She has had cholecystectomy, oophorectomy, hysterectomy and ORIF of a broken lower extremity.? She is allergic to penicillin.? She states she is allergic to some kind of pain medication but does not know what it is or what happens.? She lives in [place] and travels here intermittently.? She does not have a local primary care provider. 2018 ERCP demonstrated?Dilated common bile duct may be within normal limits given the patient's prior cholecystectomy, no evidence of choledocholithiasis.?Positive acute pancreatitis, with no loculated fluid collections or pseudocysts. Mild upper abdominal ascites, and trace bilateral effusions, with distal esophageal wall thickening may be related to esophagitis.? Today upon admit patient continues to complain of epigastric pain that is constant it is improved it is 3 to 4/10 at this time she denies nausea vomiting diarrhea chills fever, and patient is in no distress at this time. But does have body aches.? Patient's blood pressure is mildly elevated at 160 6/77 the rest of her vital signs are stable CBC and CMP WNL, her AST 149, ALT 112, lipase 2637, GGT 368, amylase 882, lactate D 959, patient demonstrates no hyperlipidemia or diabetes LDL is 103, A1c 4.7%, patient denies alcohol use.? Patient admitted for acute on chronic pancreatitis. Discharge Providers Provider Date of admission: 02/08/21 20:49 Discharge Date: 02/10/21 Discharge provider: Taty De Leon MD Summary Hospital Course Discharge Diagnosis: 1. Acute Pancreatitis 2. GERD 3. Elevated Blood pressure/ improved when pain controlled Hospital Course: Patient was admitted to the hospital for acute pancreatitis. This was her third episode. Patient does not drink, she is s/p cholecystectomy. She had a MRCP which revealed: o significant change in degree of extrahepatic biliary dilatation compared to the prior MRI.? This is likely secondary to patient's post cholecystectomy state.? There are no intrinsic filling defects to suggest etiology of pancreatitis.? Pancreatitis has not increased the degree of biliary dilatation. 2. Findings of mild acute interstitial pancreatitis.? Edema is also seen in the anthony hepatis. 3. Moderate hepatic steatosis, similar compared to prior.? ? Patient had her diet advanced. She tolerated it without difficulty. Patient reported her abdominal pain was 1/10. She was deemed appropriate for discharge home. Patient will be returning to [place] and will follow up with Gastroenterology when in [place] for possible ERCP. Status at Discharge Cognitive/behavioral status at discharge: oriented Functional status at discharge: independent ambulation Overall status at discharge: patient is back to baseline Exam Vital Signs (past 8 hours): - 02/10/21 04:40 02/10/21 05:00 02/10/21 07:37 Temperature 97.9 F 98.0 F Pulse Rate 66 65 Respiratory Rate 18 16 Blood Pressure 136/65 126/54 L Pulse Oximetry 95 96 97 02/10/21 09:13 02/10/21 09:16 Temperature Pulse Rate Respiratory Rate Blood Pressure Pulse Oximetry 94 95 Oxygen Delivery Method Room Air Oxygen Flow Rate 0 Narrative Exam Narrative: pleasant female in no acute distress Resp Other: Lungs: clear to auscultation Cardio Other: RRR nl Sl S2 GI Other: Abd: soft/ non tender/ non distended no rebound, no massess Extrem Other: No edema Objective Labs Result Diagrams: 02/09/21 05:30 02/09/21 05:30 Labs: Laboratory Results - last 24 hr 02/10/21 04:57 Total Bilirubin 0.9 Conjugated Bilirubin 0.0 Unconjugated Bilirubin 0.7 AST 69 H ALT 92 H Alkaline Phosphatase 68 Total Protein 5.3 L Albumin 3.1 L Globulin 2.2 Albumin/Globulin Ratio 1.4 [facility] Medical History GERD (gastroesophageal reflux disease) Skin cancer Surgical History Broken ankle History of breast lump/mass excision History of hysterectomy Hx of cholecystectomy Status post trigger finger release Family History Mother Dementia Father Stroke Social History household members: spouse Smoking Status: Never smoker alcohol intake: never Discharge Assessment & Plan Assessment and Plan Assessment: 1. Acute Pancreatitis 2. GERD Plan of Treatment: Discharge Outpatient evaluation with Gastroenterology for possible ERCP Discharge Plan Discharge Plan Patient Disposition: Home Discharge orders & Medications Prescriptions: Continued omeprazole 20 mg Capsule,Delayed Release(Dr/Ec) 20 mg PO DAILY RF: 0 meloxicam 15 mg Tablet 15 mg DAILY RF: 0 Discharge Health Status Multidrug resistant organism: No MDRO Diet/Activity/Treatments Diet: Diet as Tolerated Skin/Wound/Dressing Care Report to your healthcare provider any signs of infection, such as:: chills, fever and increased pain Quality VTE Deep Vein Thrombosis/Pulmonary Embolism Present on Admission: No
--- NOTE | 2021-02-10 11:29 | CM.DANOTE ---
Patient discharged home. Escorted out by [employer] via wheelchair, accompanied by spouse. All belongings given to patient. Patient and spouse provided discharge education and instructions, both verbalized understanding. Denied any further needs.
== END 2021-02-10 11:30 | disposition home or self-care (01) | DRG 440 ==
LOC: ED 20:32 → AC 20:51
PROVIDERS: Emergency Medicine; Admitting Provider Nurse Practitioner Family; Emergency Provider Emergency Medicine; Referring Provider Emergency Medicine; Visit Provider Nurse Practitioner Family
DX: K85.80 Other acute pancreatitis without necrosis or infection (principal); K21.9 Gastro-esophageal reflux disease without esophagitis; Z20.822 Contact with and (suspected) exposure to COVID-19
CPT/HCPCS: 36415; 74177; 74181; 80048; 80053; 80061; 80076; 81001; 82150; 82977; 83036; 83615; 83690; 83735; 85014; 85018; 85025; 85610; 87086; 87635; 93005; 94760; 96361; 96374; 96375; 99284; C9803; J1170; J1650; J2405; Q9967

== ENCOUNTER 2022-12-13 18:15 | Emergency (ER) | payer OTHER, MEDICARE, SELFPAY ==
[2021-02-08 21:22] VITALS: BMI 29.5
[2022-12-13 18:18] VITALS: BP 139/67; PULSE 80; RESP 16; TEMP 36.8; O2SAT 99; BMI 27.1
--- NOTE | 2022-12-13 18:38 | ED_ITS ---
HPI - General Adult <Milka Daniels MD - Last Filed: 12/15/22 07:19> General Chief complaint: Abdominal Pain Stated complaint: Severe ABD pain Time Seen by Provider: 12/13/22 18:24 History of Present Illness HPI narrative: 72-year-old woman with a history of recurrent pancreatitis November and today presents with midline epigastric pain similar to prior episodes of pancreatitis. There is no smoking no drinking not on any prescription medications that she is aware of that would be causing this. She comes in today with abdominal pain. She describes the pain as essentially epigastric sharp waxing and waning nonradiating she is still passing stool she has been vomiting most of the day. No fevers, cough, chills, chest pain. She describes occasional dysphagia with solid food regurgitation and takes omeprazole for this. She denies any new medications supplements there is no new fruits or other types of foods that might only be available mid summer to explain these recurrent episodes. Related Data Home Medications Medication Instructions Recorded Confirmed omeprazole 20 mg capsule,delayed 20 mg PO DAILY 11/18/18 02/08/21 release Allergies Allergy/AdvReac Type Severity Reaction Status Date / Time Penicillins Allergy Severe Anaphylaxis Verified 12/13/22 21:38 Review of Systems <Milka Daniels MD - Last Filed: 12/15/22 07:19> Review of Systems Narrative: Pertinent positive and negative findings as per HPI Patient History <Milka Daniels MD - Last Filed: 12/15/22 07:19> Medical History Alzheimer disease GERD (gastroesophageal reflux disease) Skin cancer Surgical History Broken ankle History of breast lump/mass excision History of hysterectomy Hx of cholecystectomy Status post trigger finger release Family History Mother Dementia Father Stroke Social History household members: spouse Smoking Status: Never smoker alcohol intake: never Smoking Status: Never smoker alcohol intake frequency: holidays/special occasions only Substance Use Type: does not use Exam <Milka Daniels MD - Last Filed: 12/15/22 07:19> Initial Vital Signs Initial Vital Signs: Vital Signs Temperature 98.2 F 12/13/22 18:18 Pulse Rate 80 12/13/22 18:18 Respiratory Rate 16 12/13/22 18:18 Blood Pressure 139/67 12/13/22 18:18 Pulse Oximetry 99 12/13/22 18:18 Oxygen Delivery Method Room Air 12/13/22 18:18 General: Healthy appearing, in mild distress. Able to give a complete and coherent history. Well-nourished well-developed HEENT: Moist mucous membranes, normal sclera with reactive pupils, Neck: No cervical adenopathy, supple Respiratory: Lungs are clear to auscultation, no wheezing no rales no rhonchi. Full and symmetrical air movement Cardiac: Regular rate and rhythm no murmurs no bruits Abdomen: Soft, mild midepigastric tenderness without rebound or guarding good bowel tones, no flank pain Skin: Warm and dry, no rashes Neurologic: Grossly neurologically intact with no obvious asymmetries or abnormalities Extremities: No trauma, well perfused Psych: Cooperative, question mild cognitive deficit but fluent speech <Tristen Hicks MD - Last Filed: 12/14/22 13:08> Initial Vital Signs Initial Vital Signs: Vital Signs Temperature 98.2 F 12/13/22 18:18 Pulse Rate 80 12/13/22 18:18 Respiratory Rate 16 12/13/22 18:18 Blood Pressure 139/67 12/13/22 18:18 Pulse Oximetry 99 12/13/22 18:18 Oxygen Delivery Method Room Air 12/13/22 18:18 Course <Milka Daniels MD - Last Filed: 12/15/22 07:19> Orders Ordered: Discontinued Medications Hydromorphone HCl (Hydromorphone 0.5 Mg Inj) 0.5 mg IV Q15MIN PRN PRN Reason: Pain, Sodium Chloride (Normal Saline 0.9%) 1,000 mls @ 1,000 mls/hr IV BOLUS ONE Stop: 12/13/22 19:46 Last Infusion: 12/13/22 19:56 Dose: 0 mls/hr Documented By: Admin: 12/13/22 18:49 Dose: 1,000 mls/hr Documented By: TC Sodium Chloride (Normal Saline 0.9%) 1,000 mls @ 150 mls/hr IV CONT HUGO Last Infusion: 12/14/22 10:10 Dose: 0 mls/hr Documented By: Infusion: 12/14/22 10:10 Dose: 0 mls/hr Documented By: Admin: 12/14/22 07:50 Dose: 150 mls/hr Documented By: Infusion: 12/14/22 06:49 Dose: 150 mls/hr Documented By: Admin: 12/14/22 00:08 Dose: 150 mls/hr Documented By: SB Loperamide HCl (Loperamide 2 Mg Capsule) 4 mg PO NOW ONE Stop: 12/14/22 05:23 Last Admin: 12/14/22 05:29 Dose: 4 mg Documented By: SB Ondansetron HCl (Ondansetron 4 Mg Odt) 4 mg PO NOW PRN PRN Reason: Nausea And Vomiting Ondansetron HCl (Ondansetron 4 Mg/2 Ml Inj) 4 mg IV NOW PRN PRN Reason: Nausea And Vomiting Last Admin: 12/13/22 18:49 Dose: 4 mg Documented By: TC Vital Signs Vital signs: Vital Signs - 8 hr 12/14/22 05:40 12/14/22 10:19 Pulse Rate 87 85 Respiratory Rate 16 16 Blood Pressure 131/65 124/65 Pulse Oximetry 98 97 Oxygen Delivery Method Room Air Room Air <Tristen Hicks MD - Last Filed: 12/14/22 13:08> Orders Ordered: Discontinued Medications Hydromorphone HCl (Hydromorphone 0.5 Mg Inj) 0.5 mg IV Q15MIN PRN PRN Reason: Pain, Sodium Chloride (Normal Saline 0.9%) 1,000 mls @ 1,000 mls/hr IV BOLUS ONE Stop: 12/13/22 19:46 Last Infusion: 12/13/22 19:56 Dose: 0 mls/hr Documented By: Admin: 12/13/22 18:49 Dose: 1,000 mls/hr Documented By: TC Sodium Chloride (Normal Saline 0.9%) 1,000 mls @ 150 mls/hr IV CONT HUGO Last Infusion: 12/14/22 10:10 Dose: 0 mls/hr Documented By: Infusion: 12/14/22 10:10 Dose: 0 mls/hr Documented By: Admin: 12/14/22 07:50 Dose: 150 mls/hr Documented By: Infusion: 12/14/22 06:49 Dose: 150 mls/hr Documented By: Admin: 12/14/22 00:08 Dose: 150 mls/hr Documented By: ADIEL Loperamide HCl (Loperamide 2 Mg Capsule) 4 mg PO NOW ONE Stop: 12/14/22 05:23 Last Admin: 12/14/22 05:29 Dose: 4 mg Documented By: ADIEL Ondansetron HCl (Ondansetron 4 Mg Odt) 4 mg PO NOW PRN PRN Reason: Nausea And Vomiting Ondansetron HCl (Ondansetron 4 Mg/2 Ml Inj) 4 mg IV NOW PRN PRN Reason: Nausea And Vomiting Last Admin: 12/13/22 18:49 Dose: 4 mg Documented By: TC Vital Signs Vital signs: Vital Signs - 8 hr 12/14/22 05:40 12/14/22 10:19 Pulse Rate 87 85 Respiratory Rate 16 16 Blood Pressure 131/65 124/65 Pulse Oximetry 98 97 Oxygen Delivery Method Room Air Room Air Medical Decision Making <Milka Daniels MD - Last Filed: 12/15/22 07:19> Lab Data 12/14/22 05:39 12/14/22 05:39 Labs: Lab Results 12/13/22 12/13/22 12/13/22 Range/Units 18:37 18:37 18:37 WBC 8.0 (4.5-11.0) X10^3/uL RBC 4.92 (4.0-5.2) X10^6/uL Hgb 15.3 (12.0-16.0) g/dL Hct 42.8 (36-46) % MCV 87.0 (80-100) fL MCH 31.0 (26-34) PG MCHC 35.7 (30-36) % RDW 12.6 (11.6-14.8) % Plt Count 193 (150-400) X10^3/uL Neut % (Auto) 83.5 H (50-75) % Lymph % (Auto) 10.5 L (25-40) % [place] % (Auto) 5.0 (3-14) % Eos % (Auto) 0.4 L (2-4) % Baso % (Auto) 0.6 (0-2) % Neut # (Auto) 6700 (0758-1103) /uL Lymph # (Auto) 800 L (9978-5950) /uL [place] # (Auto) 400 (0-900) /uL Eos # (Auto) 0 (0-450) /uL Baso # (Auto) 0 (0-100) /uL PT 12.9 H (10.1-12.7) SECONDS INR 1.1 (0.9-1.3) Sodium 137 (137-145) mmol/L Potassium 3.6 (3.4-5.1) mmol/L Chloride 103 (98-107) mmol/L Carbon Dioxide 25 (22-32) mmol/L BUN 11 (7-17) mg/dL Creatinine 0.53 (0.52-1.04) mg/dL Estimated GFR > 60 (>60) mL/min BUN/Creatinine Ratio 20.8 (6-22) Glucose 111 H (80-110) mg/dL Calcium 9.2 (8.4-10.2) mg/dL Total Bilirubin 6.0 H (0.2-1.3) mg/dL AST 242 H (14-36) IU/L ALT 245 H (<35) IU/L Alkaline Phosphatase 146 H (38-126) U/L Troponin I (0.01-0.034) ng/mL Total Protein 7.1 (6.3-8.2) g/dL Albumin 4.2 (3.5-5.0) g/dL Globulin 2.9 (1.7-4.1) g/dL Albumin/Globulin Ratio 1.4 (1.0-2.8) Lipase 67729 H (23-300) U/L Ur Bilirubin Confirm (Negative) Urine RBC (0-5/HPF) Urine WBC (0-5/HPF) Ur Squamous Epith Cells (0-5/HPF) Uric Acid Crystals (None) Urine Bacteria (None) Ur Culture Indicated? Stl C. cayetanensis PCR (Not Detect) Stool Rotavirus (PCR) (Not Detect) Stool Adenovirus (PCR) (Not Detect) Stool Astrovirus (PCR) (Not Detect) Stool Cryptosporidium PCR (Not Detect) Stl E.coli Shiga Tox PCR (Not Detect) St Sh/Enteroin Ecoli PCR (Not Detect) Stool E coli O157 PCR (Not Detect) Stl Enterotoxigenic E PCR (Not Detect) Stool EPEC (PCR) (Not Detect) Stl E. histolytica PCR (Not Detect) Stool Giardia Lamblia PCR (Not Detect) Stool Sapovirus (PCR) (Not Detect) Stl P. shigelloides PCR (Not Detect) St Y.enterocolitica PCR (Not Detect) Stool Vibrio (PCR) (Not Detect) Stl Vibrio cholerae PCR (Not Detect) Stl Enteroaggr Ecoli PCR (Not Detect) Stl Norovirus GI/GII PCR (Not Detect) Campylobacter (PCR) (Not Detect) C. difficile Tox (PCR) (Not Detect) Salmonella (PCR) (Not Detect) 12/13/22 12/13/22 12/13/22 Range/Units 18:37 20:01 20:01 WBC (4.5-11.0) X10^3/uL RBC (4.0-5.2) X10^6/uL Hgb (12.0-16.0) g/dL Hct (36-46) % MCV (80-100) fL MCH (26-34) PG MCHC (30-36) % RDW (11.6-14.8) % Plt Count (150-400) X10^3/uL Neut % (Auto) (50-75) % Lymph % (Auto) (25-40) % [place] % (Auto) (3-14) % Eos % (Auto) (2-4) % Baso % (Auto) (0-2) % Neut # (Auto) (2379-0758) /uL Lymph # (Auto) (0584-7512) /uL [place] # (Auto) (0-900) /uL Eos # (Auto) (0-450) /uL Baso # (Auto) (0-100) /uL PT (10.1-12.7) SECONDS INR (0.9-1.3) Sodium (137-145) mmol/L Potassium (3.4-5.1) mmol/L Chloride (98-107) mmol/L Carbon Dioxide (22-32) mmol/L BUN (7-17) mg/dL Creatinine (0.52-1.04) mg/dL Estimated GFR (>60) mL/min BUN/Creatinine Ratio (6-22) Glucose (80-110) mg/dL Calcium (8.4-10.2) mg/dL Total Bilirubin (0.2-1.3) mg/dL AST (14-36) IU/L ALT (<35) IU/L Alkaline Phosphatase (38-126) U/L Troponin I < 0.012 (0.01-0.034) ng/mL Total Protein (6.3-8.2) g/dL Albumin (3.5-5.0) g/dL Globulin (1.7-4.1) g/dL Albumin/Globulin Ratio (1.0-2.8) Lipase (23-300) U/L Ur Bilirubin Confirm Positive H (Negative) Urine RBC None seen (0-5/HPF) Urine WBC 5-10/hpf H (0-5/HPF) Ur Squamous Epith Cells None seen (0-5/HPF) Uric Acid Crystals Moderate H (None) Urine Bacteria Few (2-10) H (None) Ur Culture Indicated? Specimen cultured Stl C. cayetanensis PCR (Not Detect) Stool Rotavirus (PCR) (Not Detect) Stool Adenovirus (PCR) (Not Detect) Stool Astrovirus (PCR) (Not Detect) Stool Cryptosporidium PCR (Not Detect) Stl E.coli Shiga Tox PCR (Not Detect) St Sh/Enteroin Ecoli PCR (Not Detect) Stool E coli O157 PCR (Not Detect) Stl Enterotoxigenic E PCR (Not Detect) Stool EPEC (PCR) (Not Detect) Stl E. histolytica PCR (Not Detect) Stool Giardia Lamblia PCR (Not Detect) Stool Sapovirus (PCR) (Not Detect) Stl P. shigelloides PCR (Not Detect) St Y.enterocolitica PCR (Not Detect) Stool Vibrio (PCR) (Not Detect) Stl Vibrio cholerae PCR (Not Detect) Stl Enteroaggr Ecoli PCR (Not Detect) Stl Norovirus GI/GII PCR (Not Detect) Campylobacter (PCR) (Not Detect) C. difficile Tox (PCR) (Not Detect) Salmonella (PCR) (Not Detect) 12/14/22 12/14/22 12/14/22 Range/Units 05:23 05:39 05:39 WBC 8.6 (4.5-11.0) X10^3/uL RBC 4.47 (4.0-5.2) X10^6/uL Hgb 14.0 (12.0-16.0) g/dL Hct 39.2 (36-46) % MCV 87.6 (80-100) fL MCH 31.3 (26-34) PG MCHC 35.7 (30-36) % RDW 12.8 (11.6-14.8) % Plt Count 170 (150-400) X10^3/uL Neut % (Auto) 78.9 H (50-75) % Lymph % (Auto) 12.6 L (25-40) % [place] % (Auto) 7.0 (3-14) % Eos % (Auto) 1.0 L (2-4) % Baso % (Auto) 0.5 (0-2) % Neut # (Auto) 6800 (3254-0583) /uL Lymph # (Auto) 1100 (5704-0323) /uL [place] # (Auto) 600 (0-900) /uL Eos # (Auto) 100 (0-450) /uL Baso # (Auto) 0 (0-100) /uL PT (10.1-12.7) SECONDS INR (0.9-1.3) Sodium 136 L (137-145) mmol/L Potassium 3.7 (3.4-5.1) mmol/L Chloride 108 H (98-107) mmol/L Carbon Dioxide 22 (22-32) mmol/L BUN 11 (7-17) mg/dL Creatinine 0.53 (0.52-1.04) mg/dL Estimated GFR > 60 (>60) mL/min BUN/Creatinine Ratio 20.8 (6-22) Glucose 92 (80-110) mg/dL Calcium 8.4 (8.4-10.2) mg/dL Total Bilirubin 3.0 H (0.2-1.3) mg/dL AST 144 H (14-36) IU/L ALT 189 H (<35) IU/L Alkaline Phosphatase 118 (38-126) U/L Troponin I (0.01-0.034) ng/mL Total Protein 6.5 (6.3-8.2) g/dL Albumin 3.7 (3.5-5.0) g/dL Globulin 2.8 (1.7-4.1) g/dL Albumin/Globulin Ratio 1.3 (1.0-2.8) Lipase (23-300) U/L Ur Bilirubin Confirm (Negative) Urine RBC (0-5/HPF) Urine WBC (0-5/HPF) Ur Squamous Epith Cells (0-5/HPF) Uric Acid Crystals (None) Urine Bacteria (None) Ur Culture Indicated? Stl C. cayetanensis PCR Not detected (Not Detect) Stool Rotavirus (PCR) Not detected (Not Detect) Stool Adenovirus (PCR) Not detected (Not Detect) Stool Astrovirus (PCR) Not detected (Not Detect) Stool Cryptosporidium PCR Not detected (Not Detect) Stl E.coli Shiga Tox PCR Not detected (Not Detect) St Sh/Enteroin Ecoli PCR Not detected (Not Detect) Stool E coli O157 PCR Not detected (Not Detect) Stl Enterotoxigenic E PCR Not detected (Not Detect) Stool EPEC (PCR) Not detected (Not Detect) Stl E. histolytica PCR Not detected (Not Detect) Stool Giardia Lamblia PCR Not detected (Not Detect) Stool Sapovirus (PCR) Not detected (Not Detect) Stl P. shigelloides PCR Not detected (Not Detect) St Y.enterocolitica PCR Not detected (Not Detect) Stool Vibrio (PCR) Not detected (Not Detect) Stl Vibrio cholerae PCR Not detected (Not Detect) Stl Enteroaggr Ecoli PCR Not detected (Not Detect) Stl Norovirus GI/GII PCR Not detected (Not Detect) Campylobacter (PCR) Not detected (Not Detect) C. difficile Tox (PCR) Not detected (Not Detect) Salmonella (PCR) Not detected (Not Detect) 12/14/22 Range/Units 06:22 WBC (4.5-11.0) X10^3/uL RBC (4.0-5.2) X10^6/uL Hgb (12.0-16.0) g/dL Hct (36-46) % MCV (80-100) fL MCH (26-34) PG MCHC (30-36) % RDW (11.6-14.8) % Plt Count (150-400) X10^3/uL Neut % (Auto) (50-75) % Lymph % (Auto) (25-40) % [place] % (Auto) (3-14) % Eos % (Auto) (2-4) % Baso % (Auto) (0-2) % Neut # (Auto) (8598-2413) /uL Lymph # (Auto) (4477-5825) /uL [place] # (Auto) (0-900) /uL Eos # (Auto) (0-450) /uL Baso # (Auto) (0-100) /uL PT (10.1-12.7) SECONDS INR (0.9-1.3) Sodium (137-145) mmol/L Potassium (3.4-5.1) mmol/L Chloride (98-107) mmol/L Carbon Dioxide (22-32) mmol/L BUN (7-17) mg/dL Creatinine (0.52-1.04) mg/dL Estimated GFR (>60) mL/min BUN/Creatinine Ratio (6-22) Glucose (80-110) mg/dL Calcium (8.4-10.2) mg/dL Total Bilirubin (0.2-1.3) mg/dL AST (14-36) IU/L ALT (<35) IU/L Alkaline Phosphatase (38-126) U/L Troponin I (0.01-0.034) ng/mL Total Protein (6.3-8.2) g/dL Albumin (3.5-5.0) g/dL Globulin (1.7-4.1) g/dL Albumin/Globulin Ratio (1.0-2.8) Lipase 2223 H D (23-300) U/L Ur Bilirubin Confirm (Negative) Urine RBC (0-5/HPF) Urine WBC (0-5/HPF) Ur Squamous Epith Cells (0-5/HPF) Uric Acid Crystals (None) Urine Bacteria (None) Ur Culture Indicated? Stl C. cayetanensis PCR (Not Detect) Stool Rotavirus (PCR) (Not Detect) Stool Adenovirus (PCR) (Not Detect) Stool Astrovirus (PCR) (Not Detect) Stool Cryptosporidium PCR (Not Detect) Stl E.coli Shiga Tox PCR (Not Detect) St Sh/Enteroin Ecoli PCR (Not Detect) Stool E coli O157 PCR (Not Detect) Stl Enterotoxigenic E PCR (Not Detect) Stool EPEC (PCR) (Not Detect) Stl E. histolytica PCR (Not Detect) Stool Giardia Lamblia PCR (Not Detect) Stool Sapovirus (PCR) (Not Detect) Stl P. shigelloides PCR (Not Detect) St Y.enterocolitica PCR (Not Detect) Stool Vibrio (PCR) (Not Detect) Stl Vibrio cholerae PCR (Not Detect) Stl Enteroaggr Ecoli PCR (Not Detect) Stl Norovirus GI/GII PCR (Not Detect) Campylobacter (PCR) (Not Detect) C. difficile Tox (PCR) (Not Detect) Salmonella (PCR) (Not Detect) Urine Dip Bedside Urine Glucose Negative Bedside Urine Bilirubin - Negative Bedside Urine Ketone +/- 5 Urine Specific [place] 1.005 Bedside Urine Occult Blood - Negative Bedside Urine pH 6.0 Bedside Urine Protein - Negative Bedside Urine Urobilinogen +/- 1mg Bedside Urine Nitrite - Negative Bedside Urine Leukocytes +/- 15 Esterase Point of care testing: Urine Dip Bedside Urine Glucose Negative Bedside Urine Bilirubin - Negative Bedside Urine Ketone +/- 5 Urine Specific [place] 1.005 Bedside Urine Occult Blood - Negative Bedside Urine pH 6.0 Bedside Urine Protein - Negative Bedside Urine Urobilinogen +/- 1mg Bedside Urine Nitrite - Negative Bedside Urine Leukocytes +/- 15 Esterase MDM Narrative Medical decision making narrative: CC: Epigastric pain Complicating co-morbidities: History of pancreatitis yearly for the past 3 years with similar presentation Data collected from: patient, daughter Medical records reviewed: Discharge summary from 02/10/2021. Has had an ERCP see in 2019 showed dilated common ducts no other significant abnormalities. She is post cholecystectomy Differential considered: Gastritis, gastroenteritis, recurrent pancreatitis, neoplastic process, ascending cholangitis Exam documented above, pertinent findings include: Mild epigastric tenderness Lab Test results independently reviewed as above. Pertinent findings: CBC has no leukocytosis but slight left shift with neutrophils at 83%. Metabolic panel shows significant obstructive pattern with bilirubin at 6 AST 242, ALT at 245 and alkaline phosphatase at 146. Lipase is significantly elevated at over 16,000 Independently reviewed EKG sinus rhythm at a rate of 69 with slight left axis deviation no acute ischemia Imaging studies independently reviewed: Abdominal CT shows mild stranding around the pancreas consistent with mild pancreatitis and mild hepatic steatosis. MRCP does not show evidence of acute pancreatitis, no peripancreatic fluid collections or ductal dilatation, no pancreatic mass. Borderline extrahepatic biliary ductal dilatation similar to abdominal MRI in January of 2021. No evidence of choledocholithiasis Consultations: 1230am Dr Summers, GI at [facility]. Reviewed presentation findings and MRCP. Given the relatively benign MRCP she did not think that ERCP would be required but was willing to accept the patient in transfer for management of her pancreatitis. Hospitalist will call back and patient will be placed on the [facility] wait list with beds available likely tomorrow afternoon. She recommended clear liquids and ice chips at this time. 1245 Dr. Kerry Hairston, hospitist. Will accept pt. Unclear on when bed will e available Treatments: Parenteral fluids Re-evaluations: 1150pm with imaging studies now completely returned findings reviewed with patient and her daughter. Interesting lack of correlation with the MRI given the obstructive pattern appreciated on labs. I am wondering if she perhaps had a common duct stone and has passed that which is why her pain is minimal at this point. Have begun looking for available beds with possible ERCP and findings are limited There is no capacity at [facility] . [facility] may have a bed after lunch and we are on a waiting list for that, [facility] and [facility] will call back. In the meantime, will begin IV maintenance fluids, she is not having any pain at this time suspect that she will be here most of the evening will anticipate repeating blood work in the morning. She is hemodynamically stable at this time, essentially pain-free nontoxic appearing and cooperative. 5am patient has developed significant diarrhea over the course of the evening. It is loose nonbloody not particularly painful but prolific with little warning that the next episode is going to come. She has not been on any antibiotics recently and I do not suspect Clostridium difficile. Will go ahead and send stool sample. We will also give her 4 mg of Imodium. 630am AM labs showing downtrending bili, alt/ast and normalizing alk phos. Discussion: 72-year-old woman now with her 3rd episode of pancreatitis in the last 5 years with no alcohol use, no medications aside from omeprazole worsening labs including an elevated bilirubin ALT AST alk-phos and lipase in comparison to prior episodes of pancreatitis. She is having minimal tenderness no fevers is not toxic. Initially was concerned that she is going to have choledocholithiasis or obstructing mass but the MRCP is remarkably benign. Discussed with providers [facility] who are willing to accept her in transfer and consider conservative management for pancreatitis possible endoscopy at this po int it does not appear that she is going to need an urgent ERCP. Did discuss with our hospitalist, perhaps a compromise would be repeating blood work early this morning and if chemistries are trending down plan on admitting her to our hospital and if they are trending up plan on continued transfer as potentially scheduled to [facility] when a bed is available. He too was concerned that in light of no GI consultation available in-house that admitting her here would not be most appropriate. Will continue with anticipated transfer to [facility] unless bed becomes available sooner at [facility]. Care is transferred to Dr Gracia. With all numbers trending down, may again consider admit here with outpatient GI follow up. Diarrhea continues. <Tristen Hicks MD - Last Filed: 12/14/22 13:08> Lab Data Labs: Lab Results 12/13/22 12/13/22 12/13/22 Range/Units 18:37 18:37 18:37 WBC 8.0 (4.5-11.0) X10^3/uL RBC 4.92 (4.0-5.2) X10^6/uL Hgb 15.3 (12.0-16.0) g/dL Hct 42.8 (36-46) % MCV 87.0 (80-100) fL MCH 31.0 (26-34) PG MCHC 35.7 (30-36) % RDW 12.6 (11.6-14.8) % Plt Count 193 (150-400) X10^3/uL Neut % (Auto) 83.5 H (50-75) % Lymph % (Auto) 10.5 L (25-40) % [place] % (Auto) 5.0 (3-14) % Eos % (Auto) 0.4 L (2-4) % Baso % (Auto) 0.6 (0-2) % Neut # (Auto) 6700 (5998-5010) /uL Lymph # (Auto) 800 L (1324-6478) /uL [place] # (Auto) 400 (0-900) /uL Eos # (Auto) 0 (0-450) /uL Baso # (Auto) 0 (0-100) /uL PT 12.9 H (10.1-12.7) SECONDS INR 1.1 (0.9-1.3) Sodium 137 (137-145) mmol/L Potassium 3.6 (3.4-5.1) mmol/L Chloride 103 (98-107) mmol/L Carbon Dioxide 25 (22-32) mmol/L BUN 11 (7-17) mg/dL Creatinine 0.53 (0.52-1.04) mg/dL Estimated GFR > 60 (>60) mL/min BUN/Creatinine Ratio 20.8 (6-22) Glucose 111 H (80-110) mg/dL Calcium 9.2 (8.4-10.2) mg/dL Total Bilirubin 6.0 H (0.2-1.3) mg/dL AST 242 H (14-36) IU/L ALT 245 H (<35) IU/L Alkaline Phosphatase 146 H (38-126) U/L Troponin I (0.01-0.034) ng/mL Total Protein 7.1 (6.3-8.2) g/dL Albumin 4.2 (3.5-5.0) g/dL Globulin 2.9 (1.7-4.1) g/dL Albumin/Globulin Ratio 1.4 (1.0-2.8) Lipase 56013 H (23-300) U/L Ur Bilirubin Confirm (Negative) Urine RBC (0-5/HPF) Urine WBC (0-5/HPF) Ur Squamous Epith Cells (0-5/HPF) Uric Acid Crystals (None) Urine Bacteria (None) Ur Culture Indicated? Stl C. cayetanensis PCR (Not Detect) Stool Rotavirus (PCR) (Not Detect) Stool Adenovirus (PCR) (Not Detect) Stool Astrovirus (PCR) (Not Detect) Stool Cryptosporidium PCR (Not Detect) Stl E.coli Shiga Tox PCR (Not Detect) St Sh/Enteroin Ecoli PCR (Not Detect) Stool E coli O157 PCR (Not Detect) Stl Enterotoxigenic E PCR (Not Detect) Stool EPEC (PCR) (Not Detect) Stl E. histolytica PCR (Not Detect) Stool Giardia Lamblia PCR (Not Detect) Stool Sapovirus (PCR) (Not Detect) Stl P. shigelloides PCR (Not Detect) St Y.enterocolitica PCR (Not Detect) Stool Vibrio (PCR) (Not Detect) Stl Vibrio cholerae PCR (Not Detect) Stl Enteroaggr Ecoli PCR (Not Detect) Stl Norovirus GI/GII PCR (Not Detect) Campylobacter (PCR) (Not Detect) C. difficile Tox (PCR) (Not Detect) Salmonella (PCR) (Not Detect) 12/13/22 12/13/22 12/13/22 Range/Units 18:37 20:01 20:01 WBC (4.5-11.0) X10^3/uL RBC (4.0-5.2) X10^6/uL Hgb (12.0-16.0) g/dL Hct (36-46) % MCV (80-100) fL MCH (26-34) PG MCHC (30-36) % RDW (11.6-14.8) % Plt Count (150-400) X10^3/uL Neut % (Auto) (50-75) % Lymph % (Auto) (25-40) % [place] % (Auto) (3-14) % Eos % (Auto) (2-4) % Baso % (Auto) (0-2) % Neut # (Auto) (6924-1957) /uL Lymph # (Auto) (2440-6910) /uL [place] # (Auto) (0-900) /uL Eos # (Auto) (0-450) /uL Baso # (Auto) (0-100) /uL PT (10.1-12.7) SECONDS INR (0.9-1.3) Sodium (137-145) mmol/L Potassium (3.4-5.1) mmol/L Chloride (98-107) mmol/L Carbon Dioxide (22-32) mmol/L BUN (7-17) mg/dL Creatinine (0.52-1.04) mg/dL Estimated GFR (>60) mL/min BUN/Creatinine Ratio (6-22) Glucose (80-110) mg/dL Calcium (8.4-10.2) mg/dL Total Bilirubin (0.2-1.3) mg/dL AST (14-36) IU/L ALT (<35) IU/L Alkaline Phosphatase (38-126) U/L Troponin I < 0.012 (0.01-0.034) ng/mL Total Protein (6.3-8.2) g/dL Albumin (3.5-5.0) g/dL Globulin (1.7-4.1) g/dL Albumin/Globulin Ratio (1.0-2.8) Lipase (23-300) U/L Ur Bilirubin Confirm Positive H (Negative) Urine RBC None seen (0-5/HPF) Urine WBC 5-10/hpf H (0-5/HPF) Ur Squamous Epith Cells None seen (0-5/HPF) Uric Acid Crystals Moderate H (None) Urine Bacteria Few (2-10) H (None) Ur Culture Indicated? Specimen cultured Stl C. cayetanensis PCR (Not Detect) Stool Rotavirus (PCR) (Not Detect) Stool Adenovirus (PCR) (Not Detect) Stool Astrovirus (PCR) (Not Detect) Stool Cryptosporidium PCR (Not Detect) Stl E.coli Shiga Tox PCR (Not Detect) St Sh/Enteroin Ecoli PCR (Not Detect) Stool E coli O157 PCR (Not Detect) Stl Enterotoxigenic E PCR (Not Detect) Stool EPEC (PCR) (Not Detect) Stl E. histolytica PCR (Not Detect) Stool Giardia Lamblia PCR (Not Detect) Stool Sapovirus (PCR) (Not Detect) Stl P. shigelloides PCR (Not Detect) St Y.enterocolitica PCR (Not Detect) Stool Vibrio (PCR) (Not Detect) Stl Vibrio cholerae PCR (Not Detect) Stl Enteroaggr Ecoli PCR (Not Detect) Stl Norovirus GI/GII PCR (Not Detect) Campylobacter (PCR) (Not Detect) C. difficile Tox (PCR) (Not Detect) Salmonella (PCR) (Not Detect) 12/14/22 12/14/22 12/14/22 Range/Units 05:23 05:39 05:39 WBC 8.6 (4.5-11.0) X10^3/uL RBC 4.47 (4.0-5.2) X10^6/uL Hgb 14.0 (12.0-16.0) g/dL Hct 39.2 (36-46) % MCV 87.6 (80-100) fL MCH 31.3 (26-34) PG MCHC 35.7 (30-36) % RDW 12.8 (11.6-14.8) % Plt Count 170 (150-400) X10^3/uL Neut % (Auto) 78.9 H (50-75) % Lymph % (Auto) 12.6 L (25-40) % [place] % (Auto) 7.0 (3-14) % Eos % (Auto) 1.0 L (2-4) % Baso % (Auto) 0.5 (0-2) % Neut # (Auto) 6800 (4504-9601) /uL Lymph # (Auto) 1100 (2547-6226) /uL [place] # (Auto) 600 (0-900) /uL Eos # (Auto) 100 (0-450) /uL Baso # (Auto) 0 (0-100) /uL PT (10.1-12.7) SECONDS INR (0.9-1.3) Sodium 136 L (137-145) mmol/L Potassium 3.7 (3.4-5.1) mmol/L Chloride 108 H (98-107) mmol/L Carbon Dioxide 22 (22-32) mmol/L BUN 11 (7-17) mg/dL Creatinine 0.53 (0.52-1.04) mg/dL Estimated GFR > 60 (>60) mL/min BUN/Creatinine Ratio 20.8 (6-22) Glucose 92 (80-110) mg/dL Calcium 8.4 (8.4-10.2) mg/dL Total Bilirubin 3.0 H (0.2-1.3) mg/dL AST 144 H (14-36) IU/L ALT 189 H (<35) IU/L Alkaline Phosphatase 118 (38-126) U/L Troponin I (0.01-0.034) ng/mL Total Protein 6.5 (6.3-8.2) g/dL Albumin 3.7 (3.5-5.0) g/dL Globulin 2.8 (1.7-4.1) g/dL Albumin/Globulin Ratio 1.3 (1.0-2.8) Lipase (23-300) U/L Ur Bilirubin Confirm (Negative) Urine RBC (0-5/HPF) Urine WBC (0-5/HPF) Ur Squamous Epith Cells (0-5/HPF) Uric Acid Crystals (None) Urine Bacteria (None) Ur Culture Indicated? Stl C. cayetanensis PCR Not detected (Not Detect) Stool Rotavirus (PCR) Not detected (Not Detect) Stool Adenovirus (PCR) Not detected (Not Detect) Stool Astrovirus (PCR) Not detected (Not Detect) Stool Cryptosporidium PCR Not detected (Not Detect) Stl E.coli Shiga Tox PCR Not detected (Not Detect) St Sh/Enteroin Ecoli PCR Not detected (Not Detect) Stool E coli O157 PCR Not detected (Not Detect) Stl Enterotoxigenic E PCR Not detected (Not Detect) Stool EPEC (PCR) Not detected (Not Detect) Stl E. histolytica PCR Not detected (Not Detect) Stool Giardia Lamblia PCR Not detected (Not Detect) Stool Sapovirus (PCR) Not detected (Not Detect) Stl P. shigelloides PCR Not detected (Not Detect) St Y.enterocolitica PCR Not detected (Not Detect) Stool Vibrio (PCR) Not detected (Not Detect) Stl Vibrio cholerae PCR Not detected (Not Detect) Stl Enteroaggr Ecoli PCR Not detected (Not Detect) Stl Norovirus GI/GII PCR Not detected (Not Detect) Campylobacter (PCR) Not detected (Not Detect) C. difficile Tox (PCR) Not detected (Not Detect) Salmonella (PCR) Not detected (Not Detect) 12/14/22 Range/Units 06:22 WBC (4.5-11.0) X10^3/uL RBC (4.0-5.2) X10^6/uL Hgb (12.0-16.0) g/dL Hct (36-46) % MCV (80-100) fL MCH (26-34) PG MCHC (30-36) % RDW (11.6-14.8) % Plt Count (150-400) X10^3/uL Neut % (Auto) (50-75) % Lymph % (Auto) (25-40) % [place] % (Auto) (3-14) % Eos % (Auto) (2-4) % Baso % (Auto) (0-2) % Neut # (Auto) (9860-4605) /uL Lymph # (Auto) (5932-0628) /uL [place] # (Auto) (0-900) /uL Eos # (Auto) (0-450) /uL Baso # (Auto) (0-100) /uL PT (10.1-12.7) SECONDS INR (0.9-1.3) Sodium (137-145) mmol/L Potassium (3.4-5.1) mmol/L Chloride (98-107) mmol/L Carbon Dioxide (22-32) mmol/L BUN (7-17) mg/dL Creatinine (0.52-1.04) mg/dL Estimated GFR (>60) mL/min BUN/Creatinine Ratio (6-22) Glucose (80-110) mg/dL Calcium (8.4-10.2) mg/dL Total Bilirubin (0.2-1.3) mg/dL AST (14-36) IU/L ALT (<35) IU/L Alkaline Phosphatase (38-126) U/L Troponin I (0.01-0.034) ng/mL Total Protein (6.3-8.2) g/dL Albumin (3.5-5.0) g/dL Globulin (1.7-4.1) g/dL Albumin/Globulin Ratio (1.0-2.8) Lipase 2223 H D (23-300) U/L Ur Bilirubin Confirm (Negative) Urine RBC (0-5/HPF) Urine WBC (0-5/HPF) Ur Squamous Epith Cells (0-5/HPF) Uric Acid Crystals (None) Urine Bacteria (None) Ur Culture Indicated? Stl C. cayetanensis PCR (Not Detect) Stool Rotavirus (PCR) (Not Detect) Stool Adenovirus (PCR) (Not Detect) Stool Astrovirus (PCR) (Not Detect) Stool Cryptosporidium PCR (Not Detect) Stl E.coli Shiga Tox PCR (Not Detect) St Sh/Enteroin Ecoli PCR (Not Detect) Stool E coli O157 PCR (Not Detect) Stl Enterotoxigenic E PCR (Not Detect) Stool EPEC (PCR) (Not Detect) Stl E. histolytica PCR (Not Detect) Stool Giardia Lamblia PCR (Not Detect) Stool Sapovirus (PCR) (Not Detect) Stl P. shigelloides PCR (Not Detect) St Y.enterocolitica PCR (Not Detect) Stool Vibrio (PCR) (Not Detect) Stl Vibrio cholerae PCR (Not Detect) Stl Enteroaggr Ecoli PCR (Not Detect) Stl Norovirus GI/GII PCR (Not Detect) Campylobacter (PCR) (Not Detect) C. difficile Tox (PCR) (Not Detect) Salmonella (PCR) (Not Detect) Urine Dip Bedside Urine Glucose Negative Bedside Urine Bilirubin - Negative Bedside Urine Ketone +/- 5 Urine Specific [place] 1.005 Bedside Urine Occult Blood - Negative Bedside Urine pH 6.0 Bedside Urine Protein - Negative Bedside Urine Urobilinogen +/- 1mg Bedside Urine Nitrite - Negative Bedside Urine Leukocytes +/- 15 Esterase Point of care testing: Urine Dip Bedside Urine Glucose Negative Bedside Urine Bilirubin - Negative Bedside Urine Ketone +/- 5 Urine Specific [place] 1.005 Bedside Urine Occult Blood - Negative Bedside Urine pH 6.0 Bedside Urine Protein - Negative Bedside Urine Urobilinogen +/- 1mg Bedside Urine Nitrite - Negative Bedside Urine Leukocytes +/- 15 Esterase MDM Narrative Medical decision making narrative: CC: Epigastric pain Complicating co-morbidities: History of pancreatitis yearly for the past 3 years with similar presentation Data collected from: patient, daughter Medical records reviewed: Discharge summary from 02/10/2021. Has had an ERCP see in 2019 showed dilated common ducts no other significant abnormalities. She is post cholecystectomy Differential considered: Gastritis, gastroenteritis, recurrent pancreatitis, neoplastic process, ascending cholangitis Exam documented above, pertinent findings include: Mild epigastric tenderness Lab Test results independently reviewed as above. Pertinent findings: CBC has no leukocytosis but slight left shift with neutrophils at 83%. Metabolic panel shows significant obstructive pattern with bilirubin at 6 AST 242, ALT at 245 and alkaline phosphatase at 146. Lipase is significantly elevated at over 16,000 Independently reviewed EKG sinus rhythm at a rate of 69 with slight left axis deviation no acute ischemia Imaging studies independently reviewed: Abdominal CT shows mild stranding around the pancreas consistent with mild pancreatitis and mild hepatic steatosis. MRCP does not show evidence of acute pancreatitis, no peripancreatic fluid co llections or ductal dilatation, no pancreatic mass. Borderline extrahepatic biliary ductal dilatation similar to abdominal MRI in January of 2021. No evidence of choledocholithiasis Consultations: 1230am Dr Summers, GI at [facility]. Reviewed presentation findings and MRCP. Given the relatively benign MRCP she did not think that ERCP would be required but was willing to accept the patient in transfer for management of her pancreatitis. Hospitalist will call back and patient will be placed on the [facility] wait list with beds available likely tomorrow afternoon. She recommended clear liquids and ice chips at this time. 1245 Dr. Kerry Hairsotn[facility]. Unclear on when bed will e available December 14, 2022 at 7:30 a.m.. I spoke with Dr. Lunsford, general surgeon, at this time no indication transfer patient. No procedures indicated this time. Labs are trending appropriately. 8:30 a.m., hospitalist here at this hospital, Dr. Joya, has seen patient and spoken with family, at this time patient can be discharged home. We will try giving low-fat diet here and if able to tolerate can discharge home Treatments: Parenteral fluids Re-evaluations: 1150pm with imaging studies now completely returned findings reviewed with patient and her daughter. Interesting lack of correlation with the MRI given the obstructive pattern appreciated on labs. I am wondering if she perhaps had a common duct stone and has passed that which is why her pain is minimal at this point. Have begun looking for available beds with possible ERCP and findings are limited There is no capacity at [facility] . [facility] may have a bed after lunch and we are on a waiting list for that, Nubia gibbs and Yovanny will call back. In the meantime, will begin IV maintenance fluids, she is not having any pain at this time suspect that she will be here most of the evening will anticipate repeating blood work in the morning. She is hemodynamically stable at this t davy, essentially pain-free nontoxic appearing and cooperative. 5am patient has developed significant diarrhea over the course of the evening. It is loose nonbloody not particularly painful but prolific with little warning that the next episode is going to come. She has not been on any antibiotics recently and I do not suspect Clostridium difficile. Will go ahead and send stool sample. We will also give her 4 mg of Imodium. 630am AM labs showing downtrending bili, alt/ast and normalizing alk phos. December 14, 2022 at 9:51 a.m.. Patient has been able to eat low-fat diet meal. No vomiting. No pain. I spoke with family/daughter, she did speak with Dr. Joya, they do agree for discharge home as laboratory studies are improving and no pain. She was able to tolerate eating. Return precautions reviewed. They desire discharge home Discussion: 72-year-old woman now with her 3rd episode of pancreatitis in the last 5 years with no alcohol use, no medications aside from omeprazole worsening labs including an elevated bilirubin ALT AST alk-phos and lipase in comparison to prior episodes of pancreatitis. She is having minimal tenderness no fevers is not toxic. Initially was concerned that she is going to have choledocholithiasis or obstructing mass but the MRCP is remarkably benign. Discussed with providers [facility] who are willing to accept her in transfer and consider conservative management for pancreatitis possible endoscopy at this point it does not appear that she is going to need an urgent ERCP. Did discuss with our hospitalist, perhaps a compromise would be repeating blood work early this morning and if chemistries are trending down plan on admitting her to our hospital and if they are trending up plan on continued transfer as potentially scheduled to [facility] when a bed is available. He too was concerned that in light of no GI consultation available in-house that admitting her here would not be most appropriate. Will continue with anticipated transfer to [facility] unless bed becomes available sooner at [facility]. Care is transferred to Dr Gracia. With all numbers trending down, may again consider admit here with outpatient GI follow up. Diarrhea continues. Additional Information: December 14, 2022 at 7:00 a.m.. Signed out from Dr. Scott, at this time patient is accepted to [facility] with bed status pending. Total bilirubin is trending downward. Lipase for this morning labs is pending. Pain is controlled but now patient has a lot of diarrhea. It is possible that patient could stay here as labs are reassuring. 10:00 a.m.. Appropriate for discharge home. Exam is reassuring. Patient was able eat and no vomiting. No pain. Patient is from [place]. They do have GI specialist to contact for follow-up. Return precautions reviewed with patient and daughter. Not toxic at discharge. They desire discharge home Discharge Plan Departure Patient Disposition: Home Clinical Impression: Pancreatitis, Elevated bilirubin, Elevated transaminase level Instructions: Acute Pancreatitis, DI for Diarrhea and Traveler's Diarrhea -- Adult Activity Restrictions/Additional Instructions: Please contact your gastroenterology services for your visit here. They may nee d records from today's visit. Please maintain low-fat diet. Return if worse if any questions or concerns. Keep well hydrated. Drink plenty of fluids. Prescriptions: No Action omeprazole 20 mg Capsule,Delayed Release(Dr/Ec) 20 mg PO DAILY Stand Alone Forms: Patient Portal/API
[2022-12-13 18:48] LABS: Add Manual Diff / Slide Review NO; Basophils Absolute Auto 0 /uL (0-100); Basophils Percent Auto 0.6 % (0-2); Eosinophils Absolute Auto 0 /uL (0-450); Eosinophils Percent Auto 0.4 % (2-4); Hematocrit 42.8 % (36-46); Hemoglobin 15.3 g/dL (12.0-16.0); Lymphocytes Absolute Auto 800 /uL (1100-4500); Lymphocytes Percent Auto 10.5 % (25-40); Mean Corpuscular HGB Conc 35.7 % (30-36); Monocytes Absolute Auto 400 /uL (0-900); Neutrophils Absolute Auto 6700 /uL (1500-7000); Neutrophils Percent Auto 83.5 % (50-75); Platelet Count 193 X10^3/uL (150-400); Red Blood Cell Count 4.92 X10^6/uL (4.0-5.2); Red Cell Distribution Width 12.6 % (11.6-14.8)
--- NOTE | 2022-12-13 18:48 | DI.CT.S_ITS ---
PROCEDURE: CT ABDOMEN PELVIS W CON INDICATIONS: acute epigastric pain, h/o recurrent pancreatitis TECHNIQUE: After the administration of IV contrast, axial sections were acquired from the lung bases to the pubic symphysis. Coronal and sagittal reformats were performed. For radiation dose reduction, the following was used: automated exposure control, adjustment of mA and/or kV according to patient size. COMPARISON: [facility], CT, CT ABDOMEN PELVIS W CON, 02/08/2021, 19:21. FINDINGS: Image quality: Excellent. Lung bases: Unremarkable. Small hiatal hernia. Heart: No significant findings. ABDOMEN: Liver: Normal size. Mild hepatic steatosis. Gallbladder: Surgically absent. Biliary ducts: Unremarkable. Pancreas: Mild stranding around pancreas. Spleen: Unremarkable. Adrenal Glands: Mild left adrenal thickening or nodularity. Kidneys and Ureters: Unremarkable. Stomach and Bowel: Stomach, small bowel loops, and colon are unremarkable. Peritoneum: No abnormal intraperitoneal fluid. No free air. Ventral Wall: No hernia. Abdominal Nodes: No retroperitoneal or mesenteric adenopathy by size criteria. Vessels: Aorta and inferior vena cava are normal in size. PELVIS: Pelvic Organs: Unremarkable. Bladder: Unremarkable. Pelvic Nodes: No enlarged lymph nodes. Miscellaneous: Small fat containing right inguinal hernia is seen. Bones: Degenerative changes in lumbar spine. IMPRESSION: 1. Mild stranding around pancreas consistent with mild pancreatitis. 2. Small hiatal hernia. 3. Mild hepatic steatosis. Dictated by: Andi Richter M.D. on 12/13/2022 at 19:25 Approved by: Andi Richter M.D. on 12/13/2022 at 19:28
[2022-12-13] MEDS: ONDANSETRON 4 MG/2 ML INJ IV (18:49)
[2022-12-13] MEDS: SODIUM CHLORIDE 0.9% 1,000 ML 1000 ML IV (18:49)
[2022-12-13 18:52] LABS: INR 1.1 (0.9-1.3); Prothrombin Time 12.9 SECONDS (10.1-12.7)
[2022-12-13 18:56] LABS: Alanine Aminotransferase 245 IU/L (<35); Albumin 4.2 g/dL (3.5-5.0); Albumin Globulin Ratio 1.4 (1.0-2.8); Alkaline Phosphatase 146 U/L (38-126); Aspartate Aminotransferase 242 IU/L (14-36); BUN Creatinine Ratio 20.8 (6-22); Blood Urea Nitrogen 11 mg/dL (7-17); Calcium 9.2 mg/dL (8.4-10.2); Carbon Dioxide 25 mmol/L (22-32); Chloride 103 mmol/L (98-107); Estimated Glomerular Filt Rate > 60 mL/min (>60); Globulin 2.9 g/dL (1.7-4.1); Glucose 111 mg/dL (80-110); HEMOLYSIS < 15 (0-50); Potassium 3.6 mmol/L (3.4-5.1); Sodium 137 mmol/L (137-145); Total Protein 7.1 g/dL (6.3-8.2)
[2022-12-13 19:15] LABS: Lipase 16305 U/L (23-300)
[2022-12-13 19:20] LABS: Troponin I < 0.012 ng/mL (0.01-0.034)
--- NOTE | 2022-12-13 20:20 | DI.MRI.S_ITS ---
PROCEDURE: MR AB PANCREATIC/MRCP PROTOCOL INDICATIONS: pancreatitis with obstructive pattern, ? CBD stone TECHNIQUE: Coronal HASTE through the abdomen, axial 2-D FLASH in- and [id number], and breath-hold T2 FSE with fat saturation through the biliary system and pancreas. Oblique coronal and axial thin-slice HASTE, radial thick-slab HASTE centered on the extrahepatic bile ducts. COMPARISON: [facility], MR, MR ABDOMEN WO CON, 02/09/2021, 10:36. [facility], CT, CT ABDOMEN PELVIS W CON, 12/13/2022, 19:22. FINDINGS: Image quality: There is motion artifact limiting evaluation. Pancreas and biliary system: The gallbladder is surgically absent. There is mild central intrahepatic biliary ductal dilatation. The common duct is at the upper limits of normal, measuring up to 0.7 cm. No discrete filling defects to suggest choledocholithiasis. No peripancreatic fluid or edema. Pancreatic duct is nondistended. No discrete pancreatic mass identified. Other solid organs: The liver demonstrates diffuse signal dropout on [id number] imaging consistent with fatty infiltration. Spleen is normal in size. No adrenal nodules. Both kidneys are normal in size, without hydronephrosis. Nodes and vessels: No retroperitoneal or mesenteric adenopathy by size criteria. Aorta and inferior vena cava are normal in size. Bowel and peritoneum: Visualized bowel loops are normal in caliber. No free fluid. Lung bases: No basal pleural effusions. Heart size is normal. Bones and soft tissues: No ventral hernias. Bone marrow is of normal overall signal. IMPRESSION: 1. No MRI evidence of acute pancreatitis. No peripancreatic fluid collections or pancreatic duct dilatation. No discrete pancreatic mass. 2. Mild central intrahepatic biliary ductal dilatation with borderline extrahepatic biliary ductal dilatation. Findings are similar in size compared to the prior MRI study and may reflect sequelae of prior cholecystectomy. 3. No evidence of choledocholithiasis. Dictated by: Oscar Lopez M.D. on 12/13/2022 at 22:23 Approved by: Oscar Lopez M.D. on 12/13/2022 at 22:34
[2022-12-13 20:23] LABS: Bacteria Urine Few (2-10); Culture Indicated Urine Specimen Cultured; Ictotest Urine Positive (Negative); RBC Urine None Seen (0-5/HPF); Squamous Epithelial Cell Urine None Seen (0-5/HPF); Uric Acid Crystals Urine Moderate; WBC Urine 5-10/HPF (0-5/HPF)
[2022-12-13 23:36] VITALS: PULSE 74; O2SAT 97
[2022-12-13 23:37] VITALS: BP 124/69; PULSE 75; RESP 16; TEMP 36.9; O2SAT 97
[2022-12-14] MEDS: SODIUM CHLORIDE 0.9% 1,000 ML 150 ML IV ×2 (00:08→07:50)
--- NOTE | 2022-12-14 00:08 | PC.NURSE ---
Patient ambulatory to bathroom without difficulty. Moved to Rm 12 and patient provided with hospital inpatient bed for comfort and skin protection. Daughter staying with patient in ED tonight while awaiting transfer. Daughter provided with ED gurney to rest on. Patient denies any pain at this time. MD approved pt drinking sips of water. IV maintenance fluids started per MD verbal orders. Both patient and daughter deny any immediate needs at this time.
--- NOTE | 2022-12-14 04:45 | PC.NURSE ---
Patient having multiple episodes of loose/liquid stool in last two hours, one episode of being incontinent. Patient denies any pain or discomfort, but states the urge to void comes on very rapidly. Patient provided with BSC in room.
[2022-12-14] MEDS: LOPERAMIDE 2 MG CAPSULE 4 MG PO (05:29)
[2022-12-14 05:40] VITALS: BP 131/65; PULSE 87; RESP 16; O2SAT 98
[2022-12-14 05:55] LABS: Add Manual Diff / Slide Review NO; Basophils Absolute Auto 0 /uL (0-100); Basophils Percent Auto 0.5 % (0-2); Eosinophils Absolute Auto 100 /uL (0-450); Hematocrit 39.2 % (36-46); Lymphocytes Absolute Auto 1100 /uL (1100-4500); Lymphocytes Percent Auto 12.6 % (25-40); Mean Corpuscular HGB Conc 35.7 % (30-36); Mean Corpuscular Hemoglobin 31.3 PG (26-34); Mean Corpuscular Volume 87.6 fL (80-100); Monocytes Absolute Auto 600 /uL (0-900); Neutrophils Absolute Auto 6800 /uL (1500-7000); Neutrophils Percent Auto 78.9 % (50-75); Platelet Count 170 X10^3/uL (150-400); Red Blood Cell Count 4.47 X10^6/uL (4.0-5.2); Red Cell Distribution Width 12.8 % (11.6-14.8); White Blood Cell Count 8.6 X10^3/uL (4.5-11.0)
[2022-12-14 06:01] LABS: Alanine Aminotransferase 189 IU/L (<35); Albumin 3.7 g/dL (3.5-5.0); Albumin Globulin Ratio 1.3 (1.0-2.8); Alkaline Phosphatase 118 U/L (38-126); Aspartate Aminotransferase 144 IU/L (14-36); BUN Creatinine Ratio 20.8 (6-22); Blood Urea Nitrogen 11 mg/dL (7-17); Calcium 8.4 mg/dL (8.4-10.2); Carbon Dioxide 22 mmol/L (22-32); Chloride 108 mmol/L (98-107); Estimated Glomerular Filt Rate > 60 mL/min (>60); Globulin 2.8 g/dL (1.7-4.1); Glucose 92 mg/dL (80-110); HEMOLYSIS 33 (0-50); Potassium 3.7 mmol/L (3.4-5.1); Sodium 136 mmol/L (137-145); Total Protein 6.5 g/dL (6.3-8.2)
[2022-12-14 06:45] LABS: Lipase 2223 U/L (23-300)
[2022-12-14 07:10] LABS: Adenovirus F 40/41 Not Detected (Not Detect); Astrovirus Not Detected (Not Detect); Campylobacter Not Detected (Not Detect); Clostridium difficile toxin AB Not Detected (Not Detect); Cryptosporidium Not Detected (Not Detect); Cyclospora cayetanensis Not Detected (Not Detect); Entamoeba histolytica Not Detected (Not Detect); Enteroaggregative E.coli Not Detected (Not Detect); Enteropathogenic E.coli Not Detected (Not Detect); Enterotoxigenic E.coli It/st Not Detected (Not Detect); Giardia lamblia Not Detected (Not Detect); Norovirus GI/GII Not Detected (Not Detect); Plesiomonsa shigelloides Not Detected (Not Detect); Rotavirus A Not Detected (Not Detect); Salmonella Not Detected (Not Detect); Sapovirus Not Detected (Not Detect); Shiga-like toxin-prod E.coli Not Detected (Not Detect); Shigella/Enteroinvasive E.coli Not Detected (Not Detect); Vibrio Not Detected (Not Detect); Vibrio cholerae Not Detected (Not Detect); Yersinia enterocolitica Not Detected (Not Detect)
--- NOTE | 2022-12-14 09:01 | P.EN_ITS ---
Event Note Date Patient Seen: 12/14/22 Time Patient Seen: 08:15 Event Note (Rapid Response, Code, or fall): 72 F in the ER with pancreatitis, medicine consulted for possible admission. Markedly elevated bilirubin on initial labs, has prior cholecystectomy, negative MRCP. This is patient's 4th episode of pancreatitis, all after cholecystectomy. With elevation in bilirubin and recurrent pancreatitis, still consider transfer for EUS depending on GI recommendations. However patient's symptoms have also now resolved as of this morning. If she can tolerate a diet this morning this can be performed as an outpatient and she can discharge home. Recommend low fat diet for now, if tolerating she can discharge home and needs follow up with PCP in [place] as soon as possible for referral to GI. Will order IgG4 given multiple recurrences. Full consult or H&P to follow depending on need for a dmission, transfer, or discharge from the ER.
[2022-12-14 10:19] VITALS: BP 124/65; PULSE 85; RESP 16; O2SAT 97
--- NOTE | 2022-12-14 10:35 | PM.CN ---
History of Present Illness Consult details Date Patient Seen: 12/14/22 Time Patient Seen: 08:15 Chief complaint: Severe ABD pain Reason for consult: possible admission Requesting provider: Tristen Hicks Narrative: Ms Apryl Sierra is a 68-year-old female patient with a history significant for skin cancer and gastroesophageal reflux, dementia (possibly on ? Namenda) and prior episodes of idiopathic pancreatitis who presented to the ER with abdominal pain. She was found to have pancreatitis again with initial imaging showing possible obstruction with mild biliary dilatation. MRCP did not show obstruction on follow up. Bilirubin had improved and no surgical procedures were recommended. She had been in the ER for quite sometime given possible need for transfer. I was asked to evaluate for need for admission. Patient states currently her abdominal pain has now resolved, and denied any nausea or vomiting. I recommended trial of low fat diet, which the patient tolerated well, and ordered IgG4 for possible autoimmune cause. She was safe for discharge home based on improving lab function and current clinical status. Meds: omeprazole occasionally, and ? alzheimers drug suspected to be namenda but not known by available resources. Meds Home Medications and Allergies Home Medications Medication Instructions Recorded Confirmed Type omeprazole 20 mg capsule,delayed 20 mg PO DAILY 11/18/18 02/08/21 History release Allergies Allergy/AdvReac Type Severity Reaction Status Date / Time Penicillins Allergy Severe Anaphylaxis Verified 12/13/22 21:38 Review of Systems Review of Systems Narrative: All other systems reviewed with the patient and are negative unless otherwise stated. Exam Vital Signs (past 8 hours): - 12/14/22 05:40 12/14/22 10:19 Pulse Rate 87 85 Respiratory Rate 16 16 Blood Pressure 131/65 124/65 Pulse Oximetry 98 97 Oxygen Delivery Method Room Air Room Air Oxygen Delivery Method Room Air Narrative Exam Narrative: General:? Patient is well developed and well nourished, in no distress at this time. HEENT:? Normocephalic, atraumatic, extraocular muscles intact, oral pharynx is clear and mucous membranes are moist. Neck: supple and symmetric, trachea is midline, no cervical adenopathy. Negative for JVD Chest:? Normal AP diameter and contour without kyphoscoliosis, no tachypnea, equal chest rise bilaterally. Lungs:? CTA b/l no wheezing rhonchi or rales. Cardio:?RRR no m/r/g. Abdomen: S NT ND. No CVA tenderness. Musculoskeletal:? Muscle strength and tone are equal within normal limits, no deformity. Extremities: No edema or joint effusions. No cyanosis or clubbing. Skin:? Pale,? Warm to touch,dry and intact without rashes, ulcerations or petechiae.? Neuro:? mildly confused, chronic per family at bedside. Psych:? Patient has a well-kept appearance, appropriate affect, mental status attitude thought context and judgment are appropriate for age. Objective Labs 12/14/22 05:39 12/14/22 05:39 Labs: Laboratory Results - last 24 hr 12/13/22 12/13/22 12/13/22 18:37 18:37 18:37 WBC 8.0 RBC 4.92 Hgb 15.3 Hct 42.8 MCV 87.0 MCH 31.0 MCHC 35.7 RDW 12.6 Plt Count 193 Neut % (Auto) 83.5 H Lymph % (Auto) 10.5 L [place] % (Auto) 5.0 Eos % (Auto) 0.4 L Baso % (Auto) 0.6 Neut # (Auto) 6700 Lymph # (Auto) 800 L [place] # (Auto) 400 Eos # (Auto) 0 Baso # (Auto) 0 PT 12.9 H INR 1.1 Sodium 137 Potassium 3.6 Chloride 103 Carbon Dioxide 25 BUN 11 Creatinine 0.53 Estimated GFR > 60 BUN/Creatinine Ratio 20.8 Glucose 111 H Calcium 9.2 Total Bilirubin 6.0 H AST 242 H ALT 245 H Alkaline Phosphatase 146 H Troponin I Total Protein 7.1 Albumin 4.2 Globulin 2.9 Albumin/Globulin Ratio 1.4 Lipase 56403 H Ur Bilirubin Confirm Urine RBC Urine WBC Ur Squamous Epith Cells Uric Acid Crystals Urine Bacteria Ur Culture Indicated? Stl C. cayetanensis PCR Stool Rotavirus (PCR) Stool Adenovirus (PCR) Stool Astrovirus (PCR) Stool Cryptosporidium PCR Stl E.coli Shiga Tox PCR St Sh/Enteroin Ecoli PCR Stool E coli O157 PCR Stl Enterotoxigenic E PCR Stool EPEC (PCR) Stl E. histolytica PCR Stool Giardia Lamblia PCR Stool Sapovirus (PCR) Stl P. shigelloides PCR St Y.enterocolitica PCR Stool Vibrio (PCR) Stl Vibrio cholerae PCR Stl Enteroaggr Ecoli PCR Stl Norovirus GI/GII PCR Campylobacter (PCR) C. difficile Tox (PCR) Salmonella (PCR) 12/13/22 12/13/22 12/13/22 18:37 20:01 20:01 WBC RBC Hgb Hct MCV MCH MCHC RDW Plt Count Neut % (Auto) Lymph % (Auto) [place] % (Auto) Eos % (Auto) Baso % (Auto) Neut # (Auto) Lymph # (Auto) [place] # (Auto) Eos # (Auto) Baso # (Auto) PT INR Sodium Potassium Chloride Carbon Dioxide BUN Creatinine Estimated GFR BUN/Creatinine Ratio Glucose Calcium Total Bilirubin AST ALT Alkaline Phosphatase Troponin I < 0.012 Total Protein Albumin Globulin Albumin/Globulin Ratio Lipase Ur Bilirubin Confirm Positive H Urine RBC None seen Urine WBC 5-10/hpf H Ur Squamous Epith Cells None seen Uric Acid Crystals Moderate H Urine Bacteria Few (2-10) H Ur Culture Indicated? Specimen cultured Stl C. cayetanensis PCR Stool Rotavirus (PCR) Stool Adenovirus (PCR) Stool Astrovirus (PCR) Stool Cryptosporidium PCR Stl E.coli Shiga Tox PCR St Sh/Enteroin Ecoli PCR Stool E coli O157 PCR Stl Enterotoxigenic E PCR Stool EPEC (PCR) Stl E. histolytica PCR Stool Giardia Lamblia PCR Stool Sapovirus (PCR) Stl P. shigelloides PCR St Y.enterocolitica PCR Stool Vibrio (PCR) Stl Vibrio cholerae PCR Stl Enteroaggr Ecoli PCR Stl Norovirus GI/GII PCR Campylobacter (PCR) C. difficile Tox (PCR) Salmonella (PCR) 12/14/22 12/14/22 12/14/22 05:23 05:39 05:39 WBC 8.6 RBC 4.47 Hgb 14.0 Hct 39.2 MCV 87.6 MCH 31.3 MCHC 35.7 RDW 12.8 Plt Count 170 Neut % (Auto) 78.9 H Lymph % (Auto) 12.6 L [place] % (Auto) 7.0 Eos % (Auto) 1.0 L Baso % (Auto) 0.5 Neut # (Auto) 6800 Lymph # (Auto) 1100 [place] # (Auto) 600 Eos # (Auto) 100 Baso # (Auto) 0 PT INR Sodium 136 L Potassium 3.7 Chloride 108 H Carbon Dioxide 22 BUN 11 Creatinine 0.53 Estimated GFR > 60 BUN/Creatinine Ratio 20.8 Glucose 92 Calcium 8.4 Total Bilirubin 3.0 H AST 144 H ALT 189 H Alkaline Phosphatase 118 Troponin I Total Protein 6.5 Albumin 3.7 Globulin 2.8 Albumin/Globulin Ratio 1.3 Lipase Ur Bilirubin Confirm Urine RBC Urine WBC Ur Squamous Epith Cells Uric Acid Crystals Urine Bacteria Ur Culture Indicated? Stl C. cayetanensis PCR Not detected Stool Rotavirus (PCR) Not detected Stool Adenovirus (PCR) Not detected Stool Astrovirus (PCR) Not detected Stool Cryptosporidium PCR Not detected Stl E.coli Shiga Tox PCR Not detected St Sh/Enteroin Ecoli PCR Not detected Stool E coli O157 PCR Not detected Stl Enterotoxigenic E PCR Not detected Stool EPEC (PCR) Not detected Stl E. histolytica PCR Not detected Stool Giardia Lamblia PCR Not detected Stool Sapovirus (PCR) Not detected Stl P. shigelloides PCR Not detected St Y.enterocolitica PCR Not detected Stool Vibrio (PCR) Not detected Stl Vibrio cholerae PCR Not detected Stl Enteroaggr Ecoli PCR Not detected Stl Norovirus GI/GII PCR Not detected Campylobacter (PCR) Not detected C. difficile Tox (PCR) Not detected Salmonella (PCR) Not detected 12/14/22 06:22 WBC RBC Hgb Hct MCV MCH MCHC RDW Plt Count Neut % (Auto) Lymph % (Auto) [place] % (Auto) Eos % (Auto) Baso % (Auto) Neut # (Auto) Lymph # (Auto) [place] # (Auto) Eos # (Auto) Baso # (Auto) PT INR Sodium Potassium Chloride Carbon Dioxide BUN Creatinine Estimated GFR BUN/Creatinine Ratio Glucose Calcium Total Bilirubin AST ALT Alkaline Phosphatase Troponin I Total Protein Albumin Globulin Albumin/Globulin Ratio Lipase 2223 H D Ur Bilirubin Confirm Urine RBC Urine WBC Ur Squamous Epith Cells Uric Acid Crystals Urine Bacteria Ur Culture Indicated? Stl C. cayetanensis PCR Stool Rotavirus (PCR) Stool Adenovirus (PCR) Stool Astrovirus (PCR) Stool Cryptosporidium PCR Stl E.coli Shiga Tox PCR St Sh/Enteroin Ecoli PCR Stool E coli O157 PCR Stl Enterotoxigenic E PCR Stool EPEC (PCR) Stl E. histolytica PCR Stool Giardia Lamblia PCR Stool Sapovirus (PCR) Stl P. shigelloides PCR St Y.enterocolitica PCR Stool Vibrio (PCR) Stl Vibrio cholerae PCR Stl Enteroaggr Ecoli PCR Stl Norovirus GI/GII PCR Campylobacter (PCR) C. difficile Tox (PCR) Salmonella (PCR) PFSH Medical History Alzheimer disease GERD (gastroesophageal reflux disease) Skin cancer Surgical History Broken ankle History of breast lump/mass excision History of hysterectomy Hx of cholecystectomy Status post trigger finger release Family History Mother Dementia Father Stroke Social History household members: spouse Tobacco & Substance Use Smoking Status: Never smoker alcohol intake: never Assessment & Plan Assessment & Plan narrative: This is a 72 year old female in the ER with recurrent pancreatitis. She had evaluation for obstruction given elevated bilirubin, MRCP was ultimately negative. After this evaluation, her symptoms had improved to the point of tolerating a diet with minimal pain. Given improvement in labs, lack of evidence of acute obstruction, and clinical status, and ability to tolerate a diet without pain or nausea, she is safe for discharge home at this time. I did order IgG4 levels for possible recurrent pancreatitis. Recommend follow up with primary care provider and gastroenterology in her home in [place] for possible further evaluation of recurrent pancreatitis in the setting of prior cholecystectomy (episodes have begun AFTER gallbladder had already been removed). This may include EUS or ERCP as I cannot fully explain the congestive pattern seen on her lab evaluation which is currently improving, but also in the setting of negative MRCP. All diagnoses: 1. acute recurrent pancreatitis, idiopathic 2. Elevated bilirubin and transaminase levels 3. Asymptomatic bacteriuria. Code: Full, surrogate is patient's and/or daughter. I have utilized all available immediate resources to obtain, update, or review the patient's current medications. Additional history was obtained via patient's daughter, ER provider, review of documentation from ER and previous admissions. I have reviewed patient's labs and imaging personally.
== END 2022-12-14 10:20 | disposition home or self-care (01) ==
PROVIDERS: Emergency Medicine; Internal Medicine; Emergency Provider Emergency Medicine
DX: K85.00 Idiopathic acute pancreatitis without necrosis or infection (principal); E80.6 Other disorders of bilirubin metabolism; R74.01 Elevation of levels of liver transaminase levels; R94.31 Abnormal electrocardiogram [ECG] [EKG]; R82.71 Bacteriuria
CPT/HCPCS: 36415; 74177; 74183; 80053; 81003; 81015; 83690; 84484; 85025; 85610; 87086; 87507; 93005; 93010; 96374; 99285; A9579; J2405; Q9967